=== PATIENT | female | born 1975 | race Caucasian/White ===

== ENCOUNTER 2017-07-27 23:21 | Emergency (ER) | payer OTHER ==
[~2017-07-27] VITALS: Ht 160 cm; Wt 68.0 kg
[~2017-07-27 23:21] MED LIST: ? HTN MED; ALBIPROI INH; ALBU90I INH; ALBU90OI INH; ALBU90OI6 INH; ALBU90OI61 INH; AMOX500 PO; ATOR10; ATOR10 PO; AZIT250 PO; BENZ100A PO; BUSP5 PO; CEPH500 PO; CIPR500 PO; CLAR500 PO; CLIN300 PO; CYCL10 PO; Ciprodex Otic7.5 ML RIGHTEAR; Cleocin HCl150 MG PO; ERGO400 PO; FLUO10 PO; GUAI120S1 PO; HYDACE10B PO; HYDACE5 PO; HYDCHL25 PO; HYDCHL50 PO; HYDHCL10 PO; IBUP600 PO; IBUP800 PO; Keflex500 MG PO; LANS30EC PO; LITH300C PO; MELO7.5 PO; METO50 PO; METR250 PO; METR500 PO; NAPR375ER PO; NAPR500 PO; NEOPOLHCSU LEFTEAR; NEOPOLHCSU OT; Norco 5-325 Ta1 EACH PO; OXYACE5T PO; Omeprazole20 M1; PARO10 PO; PENVK500 PO; PROACE100 PO; PROM25 PO; PROP10; PROP10 PO; PROP20 PO; Percocet 5-3251 EACH PO; RANI150 PO; RXANTBENOT LEFTEAR; RXCLIN PO; RXCODACET PO; RXHYDACE PO; RXPENVK250 PO; RXTRAM50 PO; SULTRIDS PO; Sudafed30 MG PO; TRAM50 PO; TRAZ50 PO; Ultram50 MG PO; VITB100 PO; Vibramycin100 MG PO; Zantac150 MG PO; Zithromax250 MG PO
[2017-07-27] MEDS ORDERED: Cleocin HCl150 MG PO (23:42)
[2017-08-20] MEDS ORDERED: ALBU90OI61 (12:42)
[2017-08-20] MEDS ORDERED: ACET500 (12:42)
[2017-08-20] MEDS ORDERED: ZESTRIL40 MG (12:42)
[2017-08-20] MEDS ORDERED: RANI150 (12:42)
[2017-08-20] MEDS ORDERED: PANT40 (12:43)
[2017-08-20] MEDS ORDERED: AZIT250 (12:43)
[2017-08-20] MEDS ORDERED: Ocuflox5 ML (12:43)
[2017-08-20] MEDS ORDERED: FLONASE ALLERG9.9 ML (12:43)
[2017-08-20] MEDS ORDERED: NASAL DECONGEST30 MG (12:43)
[2017-08-20] MEDS ORDERED: Cheratussin AC118 ML (12:43)
[2017-08-20] MEDS ORDERED: PRED20 (12:44)
[2017-12-29] MEDS ORDERED: LOSA50 PO (19:28)
[2017-12-29] MEDS ORDERED: Vibramycin100 MG PO (19:37)
[2018-06-11] MEDS ORDERED: CLON.1 PO (22:17)
[2018-06-11] MEDS ORDERED: Prednisone20 MG PO (23:08)
== END 2017-07-28 00:43 | disposition home or self-care (01) ==
LOC: ER 23:21
DX: H66.42 Suppurative otitis media, unspecified, left ear (principal); I10 Essential (primary) hypertension; J45.909 Unspecified asthma, uncomplicated; Z88.0 Allergy status to penicillin; Z88.1 Allergy status to other antibiotic agents; Z98.51 Tubal ligation status; Z90.49 Acquired absence of other specified parts of digestive tract; Z87.891 Personal history of nicotine dependence
CPT/HCPCS: 99283

== ENCOUNTER 2017-08-27 10:25 | Day surgery (SDC) | payer OTHER ==
[~2017-08-27] VITALS: Ht 154.9 cm; Wt 80.0 kg
[~2017-08-27 10:25] MED LIST changes: +ACET500; +ALBU90OI61; +AZIT250; +Cheratussin AC118 ML; +FLONASE ALLERG9.9 ML; +NASAL DECONGEST30 MG; +Ocuflox5 ML; +PANT40; +PRED20; +RANI150; +ZESTRIL40 MG
[2017-12-29] MEDS ORDERED: LOSA50 PO (19:28)
[2017-12-29] MEDS ORDERED: Vibramycin100 MG PO (19:37)
[2018-06-11] MEDS ORDERED: CLON.1 PO (22:17)
[2018-06-11] MEDS ORDERED: Prednisone20 MG PO (23:08)
== END 2017-08-27 13:06 | disposition home or self-care (01) ==
LOC: ORSCSDS 10:25
PROVIDERS: Internal Medicine Gastroenterology
PROC: 0DB58ZX Excision of Esophagus, Via Natural or Artificial Opening Endoscopic, Diagnostic (ICD-10-PCS; principal; 2017-08-27 12:00)
PROC: 0DB98ZX Excision of Duodenum, Via Natural or Artificial Opening Endoscopic, Diagnostic (ICD-10-PCS; principal; 2017-08-27 12:00)
PROC: 0DB68ZX Excision of Stomach, Via Natural or Artificial Opening Endoscopic, Diagnostic (ICD-10-PCS; principal; 2017-08-27 12:00)
DX: K30 Functional dyspepsia (principal); K29.00 Acute gastritis without bleeding; B96.81 Helicobacter pylori [H. pylori] as the cause of diseases classified elsewhere; K20.9 Esophagitis, unspecified; R13.19 Other dysphagia; R11.2 Nausea with vomiting, unspecified; R19.7 Diarrhea, unspecified; J45.909 Unspecified asthma, uncomplicated; I10 Essential (primary) hypertension; Z87.891 Personal history of nicotine dependence; E66.9 Obesity, unspecified; Z68.32 Body mass index [BMI] 32.0-32.9, adult; Z79.899 Other long term (current) drug therapy
CPT/HCPCS: 88305; 88312; 88342

== ENCOUNTER 2017-08-30 17:08 | Emergency (ER) | payer OTHER ==
[~2017-08-30] VITALS: Ht 154.9 cm; Wt 79.4 kg
[2017-12-29] MEDS ORDERED: LOSA50 PO (19:28)
[2017-12-29] MEDS ORDERED: Vibramycin100 MG PO (19:37)
[2018-06-11] MEDS ORDERED: CLON.1 PO (22:17)
[2018-06-11] MEDS ORDERED: Prednisone20 MG PO (23:08)
== END 2017-08-30 18:53 | disposition home or self-care (01) ==
LOC: ER 17:08
DX: R21 Rash and other nonspecific skin eruption (principal); I10 Essential (primary) hypertension; F41.9 Anxiety disorder, unspecified; E78.5 Hyperlipidemia, unspecified; F31.9 Bipolar disorder, unspecified; Z88.0 Allergy status to penicillin; Z88.8 Allergy status to other drugs, medicaments and biological substances; Z88.2 Allergy status to sulfonamides; Z88.6 Allergy status to analgesic agent; Z79.899 Other long term (current) drug therapy; Z90.49 Acquired absence of other specified parts of digestive tract; Z98.51 Tubal ligation status
CPT/HCPCS: 99282

== ENCOUNTER → 2018-03-27 | Outpatient (CLI) | payer OTHER ==
[~2018-03-27] MED LIST changes: +LOSA50 PO
[2018-03-27 17:39] LABS: Adenovirus F 40/41 Not Detected (NOT DETECT); Astrovirus Not Detected (NOT DETECT); Campylobacter Sp Not Detected (NOT DETECT); Cryptosporidium Not Detected (NOT DETECT); Cyclospora Cayetanensis Not Detected (NOT DETECT); E. Coli O157 Not Detected (NOT DETECT); Entamoeba Histolytica Not Detected (NOT DETECT); Enteroaggregative E. coli-EAEC Not Detected (NOT DETECT); Enteropathogenic E. coli-EPEC Not Detected (NOT DETECT); Enterotoxigenic E. coli-ETEC Not Detected (NOT DETECT); Giardia Lamblia Not Detected (NOT DETECT); Norovirus GI/GII Not Detected (NOT DETECT); Plesiomonas Shigelloides Not Detected (NOT DETECT); Rotavirus A Not Detected (NOT DETECT); Salmonella Sp Not Detected (NOT DETECT); Sapovirus Not Detected (NOT DETECT); Shiga Toxin-prod E. coli-STEC Not Detected (NOT DETECT); Shigella/Enteroin E. coli-EIEC Not Detected (NOT DETECT); Vibrio Cholerae Not Detected (NOT DETECT); Vibrio Sp Not Detected (NOT DETECT); Yersinia Enterocolitica Not Detected (NOT DETECT)
== END ==
LOC: LAB SRC 07:00 → LAB SHORT 07:00
PROVIDERS: Nurse Practitioner Family
DX: R19.7 Diarrhea, unspecified (principal)
CPT/HCPCS: 87507

== ENCOUNTER → 2018-12-25 | Outpatient (CLI) | payer OTHER ==
[~2018-12-25] MED LIST changes: +CLON.1 PO; +Prednisone20 MG PO
[2018-12-25 12:24] LABS: BASOPHILS ABSOLUTE AUTO 0.06 K/mm3 (0.00-0.23); BASOPHILS PERCENT AUTO 1 % (0-2); EOSINOPHILS ABSOLUTE AUTO 0.23 K/mm3 (0.00-0.68); EOSINOPHILS PERCENT AUTO 2 % (0-6); Hematocrit 42.8 % (33.0-51.0); Hemoglobin 14.4 g/dL (11.5-16.0); IMMATURE GRAN ABSOLUTE AUTO 0.02 K/mm3 (0.00-0.10); IMMATURE GRAN PERCENT AUTO 0 % (0-1); LYMPHOCYTES ABSOLUTE AUTO 3.01 K/mm3 (0.84-5.20); LYMPHOCYTES PERCENT AUTO 29 % (21-46); MONOCYTES ABSOLUTE AUTO 0.58 K/mm3 (0.16-1.47); MONOCYTES PERCENT AUTO 6 % (4-13); Mean Corpuscular HGB 28.1 pg (26.0-34.0); Mean Corpuscular HGB Conc 33.6 g/dL (31.5-36.5); Mean Corpuscular Volume 84 fL (80-100); Mean Platelet Volume 11.4 fL (9.1-12.4); NEUTROPHILS ABSOLUTE AUTO 6.47 K/mm3 (1.96-9.15); NEUTROPHILS PERCENT AUTO 62 % (41-73); Platelet Count 280 K/mm3 (150-400); RDW Standard Deviation 39.2 fL (35.1-46.3); Red Blood Cell Count 5.12 M/mm3 (3.80-5.20); White Blood Cell Count 10.37 K/mm3 (4.00-11.30)
[2018-12-25 12:36] LABS: Alanine Aminotransfer (ALT/SGP 18 U/L (12-78); Albumin, Blood 4.2 g/dL (3.4-5.0); Albumin/Globulin Ratio 1.2 (0.8-1.8); Alk Phos 61 U/L (40-126); Anion Gap 8 mmol/L (6-16); Aspartate Aminotrans (AST/SGOT 17 U/L (12-37); Bilirubin, Total 0.5 mg/dL (0.1-1.0); Blood Urea Nitrogen 19 mg/dL (8-24); Bun/Creatinine Ratio 19.4 (12.0-20.0); CO2, Blood 27 mmol/L (21-32); Calcium, Blood 9.4 mg/dL (8.5-10.1); Chloride, Blood 102 mmol/L (98-108); Creatinine, Blood 0.98 mg/dL (0.40-1.00); Globulin, Blood 3.5 g/dL (2.2-4.0); Glomerular Filtration Rate >60 (60-); Glucose, Blood 96 mg/dL (70-99); Potassium, Blood 4.1 mmol/L (3.5-5.5); Sodium, Blood 137 mmol/L (136-145); Total Protein, Blood 7.7 g/dL (6.4-8.2)
== END | disposition home or self-care (01) ==
LOC: LAB SHORT 12:20 → LAB EV 12:20
PROVIDERS: General Practice
DX: R06.09 Other forms of dyspnea (principal)
CPT/HCPCS: 80053; 85025

== ENCOUNTER 2019-04-15 05:44 | Emergency (ER) | payer OTHER ==
[~2019-04-15] VITALS: Ht 152.4 cm; Wt 68.0 kg
[2019-04-15] MEDS ORDERED: Pseudoephedrine30 MG PO (07:31)
== END 2019-04-15 07:42 | disposition home or self-care (01) ==
LOC: ER 05:44
DX: J32.9 Chronic sinusitis, unspecified (principal); F41.9 Anxiety disorder, unspecified; E78.5 Hyperlipidemia, unspecified; F31.9 Bipolar disorder, unspecified; I10 Essential (primary) hypertension; G43.909 Migraine, unspecified, not intractable, without status migrainosus; Z88.0 Allergy status to penicillin; Z88.8 Allergy status to other drugs, medicaments and biological substances; Z88.2 Allergy status to sulfonamides; Z88.1 Allergy status to other antibiotic agents; Z88.6 Allergy status to analgesic agent; Z79.899 Other long term (current) drug therapy; Z87.891 Personal history of nicotine dependence
CPT/HCPCS: 99283

== ENCOUNTER 2019-11-27 08:51 | Emergency (ER) | payer OTHER ==
[~2019-11-27] VITALS: Ht 154.9 cm; Wt 77.1 kg
[~2019-11-27 08:51] MED LIST changes: +Catapres-Tts 11 EACH; +PSEU120ER PO; +Pseudoephedrine30 MG PO
[2019-11-27] MEDS ORDERED: CLON.1 PO (09:55)
[2019-11-27] MEDS ORDERED: LOSA50 PO (09:55)
[2019-11-27 10:10] LABS: BASOPHILS ABSOLUTE AUTO 0.05 K/mm3 (0.00-0.23); BASOPHILS PERCENT AUTO 1 % (0-2); EOSINOPHILS ABSOLUTE AUTO 0.21 K/mm3 (0.00-0.68); EOSINOPHILS PERCENT AUTO 2 % (0-6); Hematocrit 42.7 % (33.0-51.0); IMMATURE GRAN ABSOLUTE AUTO 0.03 K/mm3 (0.00-0.10); IMMATURE GRAN PERCENT AUTO 0 % (0-1); LYMPHOCYTES PERCENT AUTO 22 % (21-46); MONOCYTES ABSOLUTE AUTO 0.54 K/mm3 (0.16-1.47); MONOCYTES PERCENT AUTO 6 % (4-13); Mean Corpuscular HGB 28.2 pg (26.0-34.0); Mean Corpuscular HGB Conc 32.8 g/dL (31.5-36.5); Mean Corpuscular Volume 86 fL (80-100); Mean Platelet Volume 11.2 fL (9.1-12.4); NEUTROPHILS ABSOLUTE AUTO 6.45 K/mm3 (1.96-9.15); NEUTROPHILS PERCENT AUTO 69 % (41-73); Platelet Count 272 K/mm3 (150-400); RDW Coefficient Variation 13.2 % (11.7-14.2); RDW Standard Deviation 40.9 fL (35.1-46.3); Red Blood Cell Count 4.97 M/mm3 (3.80-5.20); White Blood Cell Count 9.38 K/mm3 (4.00-11.30)
[2019-11-27 10:20] LABS: Alanine Aminotransfer (ALT/SGP 18 U/L (12-78); Albumin, Blood 3.9 g/dL (3.4-5.0); Albumin/Globulin Ratio 1.1 (0.8-1.8); Alk Phos 64 U/L (50-136); Anion Gap 6 mmol/L (6-16); Aspartate Aminotrans (AST/SGOT 21 U/L (12-37); Bilirubin, Total 0.5 mg/dL (0.1-1.0); Blood Urea Nitrogen 12 mg/dL (8-24); Bun/Creatinine Ratio 14.8 (12.0-20.0); CO2, Blood 26 mmol/L (21-32); Calcium, Blood 8.6 mg/dL (8.5-10.1); Chloride, Blood 106 mmol/L (98-108); Creatinine, Blood 0.81 mg/dL (0.40-1.00); Globulin, Blood 3.7 g/dL (2.2-4.0); Glomerular Filtration Rate >60 (60-); Glucose, Blood 101 mg/dL (70-99); Sodium, Blood 138 mmol/L (136-145); Total Protein, Blood 7.6 g/dL (6.4-8.2); Troponin I <0.015 ng/mL (0.000-0.040)
[2019-11-27] MEDS ORDERED: HYDR1TAB94 PO (11:37)
== END 2019-11-27 12:11 | disposition home or self-care (01) ==
LOC: ER 08:51
PROVIDERS: Physician Assistant
DX: R07.89 Other chest pain (principal); I10 Essential (primary) hypertension; E78.5 Hyperlipidemia, unspecified; G43.909 Migraine, unspecified, not intractable, without status migrainosus; F31.9 Bipolar disorder, unspecified; F41.9 Anxiety disorder, unspecified; J45.909 Unspecified asthma, uncomplicated; Z88.0 Allergy status to penicillin; Z88.8 Allergy status to other drugs, medicaments and biological substances; Z88.2 Allergy status to sulfonamides; Z88.1 Allergy status to other antibiotic agents; Z88.6 Allergy status to analgesic agent; Z79.899 Other long term (current) drug therapy; Z87.891 Personal history of nicotine dependence
CPT/HCPCS: 36415; 71045; 80053; 84484; 85025; 96374; 96375; 99285-25; J1885; J2270

== ENCOUNTER → 2020-06-01 | Outpatient (CLI) | payer OTHER ==
[~2020-06-01] MED LIST changes: +HYDR1TAB94 PO
== END | disposition home or self-care (01) ==
LOC: LAB SRC 13:50 → LAB SHORT 13:50
DX: R35.0 Frequency of micturition (principal); M54.40 Lumbago with sciatica, unspecified side
CPT/HCPCS: 87086

== ENCOUNTER 2021-02-02 20:51 | Emergency (ER) | payer OTHER ==
[~2021-02-02] VITALS: Ht 154.9 cm; Wt 79.8 kg
[2021-02-02] MEDS ORDERED: Triamcinolone A15 GM TOP (22:11)
== END 2021-02-02 22:20 | disposition home or self-care (01) ==
LOC: ER 20:51
DX: L40.9 Psoriasis, unspecified (principal); I10 Essential (primary) hypertension; Z79.899 Other long term (current) drug therapy
CPT/HCPCS: 99282

== ENCOUNTER 2021-02-20 23:37 | Emergency (ER) | payer OTHER ==
[~2021-02-20] VITALS: Ht 154.9 cm; Wt 77.1 kg
[~2021-02-20 23:37] MED LIST changes: +Triamcinolone A15 GM TOP
== END 2021-02-21 04:40 | disposition left against medical advice (07) ==
LOC: ER 23:37
DX: Z53.21 Procedure and treatment not carried out due to patient leaving prior to being seen by health care provider (principal)

== ENCOUNTER 2021-02-26 02:05 | Emergency (ER) | payer OTHER | END 2021-02-26 04:21 | disposition left against medical advice (07) | LOC: ER 02:05 | DX: Z53.21 Procedure and treatment not carried out due to patient leaving prior to being seen by health care provider (principal) ==

== ENCOUNTER 2021-09-06 02:52 | Emergency (ER) | payer OTHER ==
[~2021-09-06 02:52] MED LIST changes: +FAMO20 PO
== END 2021-09-06 04:47 | disposition home or self-care (01) ==
LOC: ER 02:52
DX: R20.0 Anesthesia of skin (principal); R51.9 Headache, unspecified; E78.5 Hyperlipidemia, unspecified; I10 Essential (primary) hypertension; G43.909 Migraine, unspecified, not intractable, without status migrainosus; J45.909 Unspecified asthma, uncomplicated; Z87.891 Personal history of nicotine dependence; Z88.8 Allergy status to other drugs, medicaments and biological substances; Z88.0 Allergy status to penicillin; Z88.2 Allergy status to sulfonamides; Z88.1 Allergy status to other antibiotic agents; Z79.899 Other long term (current) drug therapy
CPT/HCPCS: 70450

== ENCOUNTER → 2021-10-05 | Outpatient (CLI) | payer OTHER | END | disposition home or self-care (01) | LOC: LAB SHORT 14:30 → LAB 14:30 | DX: L02.413 Cutaneous abscess of right upper limb (principal); L03.119 Cellulitis of unspecified part of limb | CPT/HCPCS: 87015; 87116; 87206 ==

== ENCOUNTER → 2022-03-06 | Outpatient (CLI) | payer OTHER ==
[2022-03-07 15:10] LABS: HPV 16 Negative (Negative); HPV 18 Negative (Negative); HPV OTHER HR TYPES Negative (Negative)
== END | disposition home or self-care (01) ==
LOC: LAB SHORT 16:30 → LAB 16:30
PROVIDERS: Family Medicine
DX: Z01.419 Encounter for gynecological examination (general) (routine) without abnormal findings (principal)
CPT/HCPCS: 87624; G0123

== ENCOUNTER 2022-03-07 09:28 | Emergency (ER) | payer OTHER ==
[~2022-03-07] VITALS: Ht 154.9 cm; Wt 79.8 kg
[2022-03-07 10:36] LABS: Albumin, Blood 3.4 g/dL (3.4-5.0); Albumin/Globulin Ratio 0.9 (0.8-1.8); Bilirubin, Total 0.2 mg/dL (0.1-1.0); Bun/Creatinine Ratio 27.3 (12.0-20.0); Calcium, Blood 8.3 mg/dL (8.5-10.1); Creatinine, Blood 0.59 mg/dL (0.40-1.00); Globulin, Blood 3.6 g/dL (2.2-4.0); Potassium, Blood 3.9 mmol/L (3.5-5.5)
[2022-03-07 10:38] LABS: BASOPHILS ABSOLUTE AUTO 0.07 K/mm3 (0.00-0.23); BASOPHILS PERCENT AUTO 1 % (0-2); EOSINOPHILS ABSOLUTE AUTO 0.28 K/mm3 (0.00-0.68); EOSINOPHILS PERCENT AUTO 3 % (0-6); Hematocrit 46.4 % (33.0-51.0); Hemoglobin 15.1 g/dL (11.5-16.0); IMMATURE GRAN ABSOLUTE AUTO 0.04 K/mm3 (0.00-0.10); IMMATURE GRAN PERCENT AUTO 0 % (0-1); LYMPHOCYTES ABSOLUTE AUTO 2.54 K/mm3 (0.84-5.20); LYMPHOCYTES PERCENT AUTO 26 % (21-46); MONOCYTES PERCENT AUTO 4 % (4-13); Mean Corpuscular HGB 27.7 pg (26.0-34.0); Mean Corpuscular HGB Conc 32.5 g/dL (31.5-36.5); Mean Corpuscular Volume 85 fL (80-100); Mean Platelet Volume 11.6 fL (9.1-12.4); NEUTROPHILS ABSOLUTE AUTO 6.62 K/mm3 (1.96-9.15); NEUTROPHILS PERCENT AUTO 67 % (41-73); Platelet Count 258 K/mm3 (150-400); RDW Coefficient Variation 12.6 % (11.7-14.2); RDW Standard Deviation 38.9 fL (35.1-46.3); Red Blood Cell Count 5.46 M/mm3 (3.80-5.20); White Blood Cell Count 9.95 K/mm3 (4.00-11.30)
== END 2022-03-07 13:30 | disposition home or self-care (01) ==
LOC: ER 09:28
PROVIDERS: Student in an Organized Health Care Education/Training Program
DX: R07.89 Other chest pain (principal); E78.5 Hyperlipidemia, unspecified; I10 Essential (primary) hypertension; J45.909 Unspecified asthma, uncomplicated; Z79.899 Other long term (current) drug therapy; Z88.6 Allergy status to analgesic agent; Z88.1 Allergy status to other antibiotic agents; Z88.0 Allergy status to penicillin; Z88.2 Allergy status to sulfonamides; Z88.8 Allergy status to other drugs, medicaments and biological substances
CPT/HCPCS: 36415; 71045; 80053; 84484; 85025; 93005; 93010; 99284-25; A9270; J1885

== ENCOUNTER 2022-06-13 06:23 | Emergency (ER) | payer OTHER ==
[~2022-06-13] VITALS: Ht 167.6 cm; Wt 81.7 kg
[2022-06-13 07:24] LABS: BASOPHILS ABSOLUTE AUTO 0.03 K/mm3 (0.00-0.23); BASOPHILS PERCENT AUTO 0 % (0-2); EOSINOPHILS ABSOLUTE AUTO 0.07 K/mm3 (0.00-0.68); EOSINOPHILS PERCENT AUTO 1 % (0-6); Hematocrit 40.6 % (33.0-51.0); Hemoglobin 13.7 g/dL (11.5-16.0); IMMATURE GRAN ABSOLUTE AUTO 0.01 K/mm3 (0.00-0.10); IMMATURE GRAN PERCENT AUTO 0 % (0-1); LYMPHOCYTES ABSOLUTE AUTO 0.36 K/mm3 (0.84-5.20); LYMPHOCYTES PERCENT AUTO 5 % (21-46); MONOCYTES ABSOLUTE AUTO 0.47 K/mm3 (0.16-1.47); MONOCYTES PERCENT AUTO 7 % (4-13); Mean Corpuscular HGB Conc 33.7 g/dL (31.5-36.5); Mean Corpuscular Volume 83 fL (80-100); Mean Platelet Volume 11.5 fL (9.1-12.4); NEUTROPHILS ABSOLUTE AUTO 6.05 K/mm3 (1.96-9.15); NEUTROPHILS PERCENT AUTO 87 % (41-73); Platelet Count 188 K/mm3 (150-400); RDW Coefficient Variation 12.9 % (11.7-14.2); RDW Standard Deviation 38.9 fL (35.1-46.3); Red Blood Cell Count 4.89 M/mm3 (3.80-5.20); White Blood Cell Count 6.99 K/mm3 (4.00-11.30)
[2022-06-13 07:43] LABS: Albumin, Blood 3.5 g/dL (3.4-5.0); Bilirubin, Total 0.3 mg/dL (0.1-1.0); Bun/Creatinine Ratio 17.4 (12.0-20.0); Calcium, Blood 8.7 mg/dL (8.5-10.1); Creatinine, Blood 0.86 mg/dL (0.40-1.00); Globulin, Blood 3.5 g/dL (2.2-4.0); Potassium, Blood 4.1 mmol/L (3.5-5.5)
[2022-06-13 08:42] LABS: Influenza A, PCR NEGATIVE (NEGATIVE); Influenza B, PCR NEGATIVE (NEGATIVE); Resp Syncytial Virus, PCR NEGATIVE (NEGATIVE); SARS-Cov-2 (COVID-19) PCR, MMC NEGATIVE (NEGATIVE)
== END 2022-06-13 09:35 | disposition home or self-care (01) ==
LOC: ER 06:23
PROVIDERS: Emergency Medicine
DX: R51.9 Headache, unspecified (principal); I10 Essential (primary) hypertension; Z88.0 Allergy status to penicillin; Z88.2 Allergy status to sulfonamides; Z88.8 Allergy status to other drugs, medicaments and biological substances; Z79.899 Other long term (current) drug therapy; Z20.822 Contact with and (suspected) exposure to COVID-19
CPT/HCPCS: 0241U; 36415; 70450; 71045; 80053; 84703; 85025; J1200; J2765; J7030

== ENCOUNTER 2023-07-20 17:57 | Emergency (ER) | payer OTHER ==
[~2023-07-20] VITALS: Ht 154.9 cm; Wt 81.7 kg
[2023-07-20 18:02] VITALS: BP 186/113
== END 2023-07-20 18:24 | disposition home or self-care (01) ==
LOC: ER 17:57
DX: S50.812A Abrasion of left forearm, initial encounter (principal); M54.2 Cervicalgia; V43.52XA Car driver injured in collision with other type car in traffic accident, initial encounter; Z88.0 Allergy status to penicillin; Z88.8 Allergy status to other drugs, medicaments and biological substances; Z88.2 Allergy status to sulfonamides; Z88.1 Allergy status to other antibiotic agents; Z88.6 Allergy status to analgesic agent; Z79.899 Other long term (current) drug therapy; E78.5 Hyperlipidemia, unspecified; I10 Essential (primary) hypertension; G43.909 Migraine, unspecified, not intractable, without status migrainosus; J45.909 Unspecified asthma, uncomplicated
CPT/HCPCS: 99283

== ENCOUNTER 2024-08-21 21:20 | Emergency (ER) | payer OTHER ==
[~2024-08-21] VITALS: Ht 154.9 cm; Wt 83.9 kg
[~2024-08-21 21:20] MED LIST changes: +AMLO10 PO; +BUDESONIDE-FO10.2 G2 INH; +Benicar40 MG PO; +CATAPRES0.1 MG PO; +DOCU100 PO; +OMEP20ER PO; +ONDA4 PO; +VITAMIN D350 MC3; +VITAMIN D350 MC3 PO
[2024-08-21 21:58] LABS: BASOPHILS ABSOLUTE AUTO 0.06 K/mm3 (0.00-0.23); BASOPHILS PERCENT AUTO 1 % (0-2); EOSINOPHILS ABSOLUTE AUTO 0.24 K/mm3 (0.00-0.68); EOSINOPHILS PERCENT AUTO 2 % (0-6); Hematocrit 44.4 % (33.0-51.0); Hemoglobin 14.9 g/dL (11.5-16.0); IMMATURE GRAN ABSOLUTE AUTO 0.03 K/mm3 (0.00-0.10); IMMATURE GRAN PERCENT AUTO 0 % (0-1); LYMPHOCYTES PERCENT AUTO 24 % (21-46); MONOCYTES ABSOLUTE AUTO 0.61 K/mm3 (0.16-1.47); MONOCYTES PERCENT AUTO 6 % (4-13); Mean Corpuscular HGB 28.1 pg (26.0-34.0); Mean Corpuscular HGB Conc 33.6 g/dL (31.5-36.5); Mean Corpuscular Volume 84 fL (80-100); Mean Platelet Volume 11.8 fL (9.1-12.4); NEUTROPHILS ABSOLUTE AUTO 6.86 K/mm3 (1.96-9.15); NEUTROPHILS PERCENT AUTO 67 % (41-73); Platelet Count 303 K/mm3 (150-400); RDW Coefficient Variation 13.1 % (11.7-14.2); RDW Standard Deviation 40.1 fL (35.1-46.3); Red Blood Cell Count 5.31 M/mm3 (3.80-5.20)
[2024-08-21 22:11] LABS: Albumin, Blood 4.2 g/dL (3.4-5.0); Albumin/Globulin Ratio 1.1 (0.8-1.8); Bilirubin, Total 0.4 mg/dL (0.1-1.0); Bun/Creatinine Ratio 20.8 (12.0-20.0); Calcium, Blood 9.6 mg/dL (8.5-10.1); Creatinine, Blood 0.72 mg/dL (0.40-1.00); Globulin, Blood 3.8 g/dL (2.2-4.0); Potassium, Blood 4.1 mmol/L (3.5-5.5)
[2024-08-21] MEDS ORDERED: Furosemide 10 MG / ML 2ML Vial IV ONE (23:15)
[2024-08-21] MEDS ORDERED: Hydrochlorothia25 MG PO (23:23)
[2024-08-21 23:30] VITALS: BP 154/101
== END 2024-08-21 23:47 | disposition home or self-care (01) ==
LOC: ER 21:20
PROVIDERS: Physician Assistant
DX: R07.89 Other chest pain (principal); R60.0 Localized edema; I10 Essential (primary) hypertension
CPT/HCPCS: 71046; 80053; 83880; 84484; 85025; 93005; 93010; 96374; 99284-25; J1940

== ENCOUNTER 2024-10-19 05:27 | Day surgery (SDC) | payer OTHER ==
[~2024-10-19 05:27] MED LIST changes: -AMLO10 PO; +AMLO5 PO; +Hydrochlorothia25 MG PO
[2024-10-19] MEDS ORDERED: Lidocaine HCl/Pf 1% 5 ML VIAL ONE (07:32)
[2024-10-19] MEDS ORDERED: Lidocaine 2% 5 ML SDV ONE (07:33)
[2024-10-19] MEDS ORDERED: Lactated Ringer's 1,000 ML IV ONE (07:41)
[2024-10-19] MEDS ORDERED: propofoL 50 ML IV ONE (07:41)
== END 2024-10-19 11:40 | disposition home or self-care (01) ==
LOC: ORSCSDS 05:27
DX: K44.9 Diaphragmatic hernia without obstruction or gangrene (principal); K21.9 Gastro-esophageal reflux disease without esophagitis; Z53.9 Procedure and treatment not carried out, unspecified reason
CPT/HCPCS: J2003; J2704; J7120

== ENCOUNTER 2024-10-24 03:16 | Inpatient (IN) | payer OTHER ==
[2024-10-24] VITALS (20 sets, daily range): BP systolic 116–149; BP diastolic 84–107
[~2024-10-24] VITALS: Ht 154.9 cm; Wt 88.4 kg
[2024-10-24] MEDS ORDERED: Mag Hydrox/AL Hydrox/Simeth 30 ML UDC PO ONE (03:25)
[2024-10-24] MEDS ORDERED: Lidocaine 2% Viscous Soln 15 ML UDC PO ONE (03:25)
[2024-10-24 03:45] LABS: BASOPHILS ABSOLUTE AUTO 0.07 K/mm3 (0.00-0.23); BASOPHILS PERCENT AUTO 1 % (0-2); EOSINOPHILS ABSOLUTE AUTO 0.24 K/mm3 (0.00-0.68); EOSINOPHILS PERCENT AUTO 2 % (0-6); Hematocrit 40.8 % (33.0-51.0); Hemoglobin 13.5 g/dL (11.5-16.0); IMMATURE GRAN ABSOLUTE AUTO 0.03 K/mm3 (0.00-0.10); IMMATURE GRAN PERCENT AUTO 0 % (0-1); LYMPHOCYTES ABSOLUTE AUTO 2.82 K/mm3 (0.84-5.20); LYMPHOCYTES PERCENT AUTO 26 % (21-46); MONOCYTES PERCENT AUTO 6 % (4-13); Mean Corpuscular HGB 27.5 pg (26.0-34.0); Mean Corpuscular HGB Conc 33.1 g/dL (31.5-36.5); Mean Corpuscular Volume 83 fL (80-100); Mean Platelet Volume 10.9 fL (9.1-12.4); NEUTROPHILS ABSOLUTE AUTO 7.18 K/mm3 (1.96-9.15); NEUTROPHILS PERCENT AUTO 66 % (41-73); Platelet Count 294 K/mm3 (150-400); RDW Coefficient Variation 12.9 % (11.7-14.2); Red Blood Cell Count 4.91 M/mm3 (3.80-5.20); White Blood Cell Count 10.94 K/mm3 (4.00-11.30)
[2024-10-24 04:05] LABS: Albumin, Blood 3.4 g/dL (3.4-5.0); Bilirubin, Total 0.1 mg/dL (0.1-1.0); Bun/Creatinine Ratio 15.7 (12.0-20.0); Calcium, Blood 8.3 mg/dL (8.5-10.1); Creatinine, Blood 0.7 mg/dL (0.40-1.00); Globulin, Blood 3.3 g/dL (2.2-4.0); Potassium, Blood 3.6 mmol/L (3.5-5.5); Total Protein, Blood 6.7 g/dL (6.4-8.2)
[2024-10-24] MEDS ORDERED: Metoprolol Tartrate 1 MG/ML 5 ML VIAL IV PRN (05:00)
[2024-10-24] MEDS ORDERED: Nitroglycerin 1 INCH/GM PKT TOP ONE (05:05)
[2024-10-24] MEDS ORDERED: HydrALAZINE HCl 20 MG / ML 1ML Vial IV ONE (05:35)
[2024-10-24] MEDS ORDERED: Aspirin 81 MG Chew PO SCH (06:00)
[2024-10-24] MEDS ORDERED: Nitroglycerin 0.4 MG SUBL SL PRN (06:00)
[2024-10-24] MEDS ORDERED: Atorvastatin 40 MG Tab PO SCH (06:00)
[2024-10-24] MEDS ORDERED: Ondansetron HCl 2 MG / ML 2ML Vial IV PRN (06:00)
[2024-10-24 06:01] LABS: Anti-Xa UFH, PHA Monitoring <0.10 IU/mL; International Normalized Ratio 0.91; Prothrombin Time Results 9.8 Sec (9.7-11.5)
[2024-10-24] MEDS ORDERED: FentaNYL Citrate 50 MCG/ML 2 ML Injection IV PRN (06:05)
[2024-10-24] MEDS ORDERED: HydrALAZINE HCl 20 MG / ML 1ML Vial IV PRN (06:05)
[2024-10-24] MEDS ORDERED: CARV25 PO (06:52)
[2024-10-24] MEDS ORDERED: Dose Adjust by Pharmacy XX STA (06:56)
[2024-10-24] MEDS ORDERED: Heparin Sodium 5000 Units/ML 1ML MDV IV ONE (07:00)
[2024-10-24] MEDS ORDERED: Heparin Sodium,Porcine/0.5 NS 500 ML IV SCH (07:00)
[2024-10-24] MEDS ORDERED: Morphine Sulfate 10 MG/ML 1MLSYR IV PRN (07:55)
[2024-10-24] MEDS ORDERED: Nitroglycerin 2 MG/20 ML BTL ONE (09:22)
[2024-10-24] MEDS ORDERED: Verapamil HCL 2.5 MG/ML 2ML Injection ONE (09:22)
[2024-10-24] MEDS ORDERED: Heparin Sodium 1000 Units/ML 10ML MDV ONE ×2 (09:22→09:57)
[2024-10-24] MEDS ORDERED: NS 1,000 ML IV ONE ×2 (09:22→09:24)
[2024-10-24] MEDS ORDERED: NS 250 ML IV ONE (09:22)
[2024-10-24] MEDS ORDERED: FentaNYL Citrate 50 MCG/ML 2 ML Injection ONE ×4 (09:24→11:58)
[2024-10-24] MEDS ORDERED: Midazolam HCl 1MG / ML 2ML Vial ONE ×2 (09:24→10:51)
[2024-10-24] MEDS ORDERED: Phenylephrine HCl 100 MCG/ML-NS 10MLSYR (1MG/10ML) ONE (10:24)
[2024-10-24] MEDS ORDERED: Clopidogrel Bisulfate 300 MG TABLET ONE (11:05)
[2024-10-24] MEDS ORDERED: NS 1,000 ML IV SCH (11:25)
[2024-10-24] MEDS ORDERED: Metoprolol Succinate 50 MG TABCR PO SCH (12:00)
[2024-10-24] MEDS ORDERED: FentaNYL Citrate 50 MCG/ML 2 ML Injection IV ONE (12:00)
--- NOTE | 2024-10-24 12:43 | NUR ---
UPDATE: PT ARRIVED BACK TO HER ROOM FROM DIRECTOR MARKET INTELLIGENCE AT APPROX. PT ARRIVES WITH TR BAND IN PLACE. PT NOT REPORTING ANY CP ON ARRIVAL. PT BEGAN TO REPORT 7/10 CP APPROX 10 MINUTES AFTER ARRIVAL. REPEAT EKG OBTAINED. VICE PRESIDENT OF ACADEMIC AFFAIRS AT BEDSIDE TO SEE PT. VERBAL ORDER FOR 50MCG OF FENTANYL ANY SL NITRO. PT STATING THAT SHE DOES NOT FEEL GOOD AND IT DESCRIBING HER CP AT CHRUSHING. PT ALSO COMPLAINING OF FEELING HOT AND SWEATY. PT MEDICATED WITH FENTANLY AND NITRO X2. PT REPORTING 0/10 CP AT THIS TIME. BLOOD PRESSURE 124/93 (102). PT GIVEN PO METOPROLOL TO GET SBP BELOW 120 PER PROVIDER ORDERS.
[2024-10-24] MEDS ORDERED: Isosorbide Mononitrate 60 MG TABCR PO SCH (13:05)
[2024-10-24] MEDS ORDERED: Lisinopril 10 MG Tab PO SCH (13:05)
[2024-10-24] MEDS ORDERED: AmLODIPine Besylate 5 MG Tab PO SCH (13:05)
[2024-10-24] MEDS ORDERED: Acetaminophen 325 MG TABLET PO PRN (15:45)
[2024-10-24] MEDS ORDERED: Pantoprazole Sodium 20 MG Tab PO SCH (16:00)
--- NOTE | 2024-10-24 16:08 | NUR ---
TR BAND UPDATE: THIS RN ADDED 2CC OR AIR TO TR BAND AROUND 1300 DUE TO BLEEDING (13CC OF AIR TOTAL). NO NEW SIGNS OF BLEEDING OCCURED. AT 1500 2CC OF AIR WAS REMOVED. AT 1545 THERE WERE NO NEW SIGNS OF BLEEDING, BRUSING OR HEMATOMA AND 2 MORE CC OF AIR WERE REMOVED. THIS RN CHECKED TR BAND AT 1600 AND FOUND SOME NEW BLEEDING AROUND TR BAND. 2CC OF AIR WAS ADDED TO TR BAND (TOTAL OF 11CC OF AIR). CAP REFIL GOOD. BIOX ON HAND WITH GOOD PLEATH. PT DENIES ANY CP, PRESSURE, TIGHTNESS OR SOB AT THIS TIME. VSS. BACK SHOE WORKER AWARE. WILL CONTINUE TO CARE FOR PT TOLL END OF SHIFT.
--- NOTE | 2024-10-24 19:16 | NUR ---
SHIFT SUMMARY: READ PREVIOUS NOTES REGARDING POST ANGIO EVENTS. SINCE LAST NOTE 4CC OF AIR HAS BEEN TAKEN OUT OF TR BAND. THERE ARE NO NEW SIGNS OF BLEEDING, HEMATOMA OR BRUISING. PT HAS BEEN SLEEPING MOST OF THE EVENING AND WOKE UP TO EAT DINNER. NO OTHER SIGNIFICANT EVENTS HAPPENED. REPORT TO LEXI REYES TO ASSUME CARE OF PT.
--- NOTE | 2024-10-24 19:48 | NUR ---
Care Assumed now for patient. Report received from Patsy REYES. Patient is able to particpate in bedside report. C/O of heartburn. TRB remains on. Blood pressures WNL. Continue Care
[2024-10-25] VITALS (7 sets, daily range): BP systolic 88–111; BP diastolic 52–77
[2024-10-25 04:04] LABS: BASOPHILS ABSOLUTE AUTO 0.05 K/mm3 (0.00-0.23); BASOPHILS PERCENT AUTO 0 % (0-2); EOSINOPHILS ABSOLUTE AUTO 0.14 K/mm3 (0.00-0.68); EOSINOPHILS PERCENT AUTO 1 % (0-6); Hematocrit 40.4 % (33.0-51.0); Hemoglobin 12.9 g/dL (11.5-16.0); IMMATURE GRAN ABSOLUTE AUTO 0.07 K/mm3 (0.00-0.10); IMMATURE GRAN PERCENT AUTO 1 % (0-1); LYMPHOCYTES ABSOLUTE AUTO 1.95 K/mm3 (0.84-5.20); LYMPHOCYTES PERCENT AUTO 13 % (21-46); MONOCYTES ABSOLUTE AUTO 1.02 K/mm3 (0.16-1.47); MONOCYTES PERCENT AUTO 7 % (4-13); Mean Corpuscular HGB 27.2 pg (26.0-34.0); Mean Corpuscular HGB Conc 31.9 g/dL (31.5-36.5); Mean Corpuscular Volume 85 fL (80-100); Mean Platelet Volume 11.3 fL (9.1-12.4); NEUTROPHILS ABSOLUTE AUTO 11.51 K/mm3 (1.96-9.15); NEUTROPHILS PERCENT AUTO 78 % (41-73); Platelet Count 279 K/mm3 (150-400); RDW Coefficient Variation 13.1 % (11.7-14.2); RDW Standard Deviation 40.9 fL (35.1-46.3); Red Blood Cell Count 4.75 M/mm3 (3.80-5.20); White Blood Cell Count 14.74 K/mm3 (4.00-11.30)
[2024-10-25 04:24] LABS: Albumin, Blood 3.1 g/dL (3.4-5.0); Albumin/Globulin Ratio 1.1 (0.8-1.8); Bilirubin, Total 0.5 mg/dL (0.1-1.0); Bun/Creatinine Ratio 19.9 (12.0-20.0); Calcium, Blood 8.3 mg/dL (8.5-10.1); Creatinine, Blood 0.6 mg/dL (0.40-1.00); Globulin, Blood 2.9 g/dL (2.2-4.0); Potassium, Blood 4.2 mmol/L (3.5-5.5)
--- NOTE | 2024-10-25 05:10 | NUR ---
PATIENT SLEPT ENTIRE SHIFT. AROUSABLE FOR VSS AND TRB CHECKS. TRB WAS REMOVED THIS MORNING. NO BLEEDING. RIGHT WRIST IS SOFT. ARM BOARD REPLACED TO REMIND PATIENT TO NOT USE WRIST. PATIENT ASKING TO TAKE SHOWER THEN FALLS RIGHT BACK ASLEEP. MAIN COMPLAINT IS A HEADACHE WHENEVER SHE WAKES UP. ASKED PATIENT HOW HER HEADACHE WAS THIS MORNING AND SHE STATES "I THINK IT IS COMING BACK I NEED TO TAKE A SHOWER." PATIENT THEN FELL BACK ASLEEP. CONTINUE CARE
[2024-10-25] MEDS ORDERED: Isosorbide Mononitrate 60 MG TABCR PO SCH (09:00)
[2024-10-25] MEDS ORDERED: Lisinopril 10 MG Tab PO SCH (09:00)
[2024-10-25] MEDS ORDERED: AmLODIPine Besylate 5 MG Tab PO SCH (09:00)
[2024-10-25] MEDS ORDERED: Clopidogrel Bisulfate 75 MG Tab PO SCH (09:00)
[2024-10-25] MEDS ORDERED: Calcium Carbonate 500 MG Tab Chew PO PRN (11:45)
[2024-10-25 16:47] LABS: Influenza A, PCR NEGATIVE (NEGATIVE); Influenza B, PCR NEGATIVE (NEGATIVE); Resp Syncytial Virus, PCR NEGATIVE (NEGATIVE); SARS-Cov-2 (COVID-19) PCR, MMC NEGATIVE (NEGATIVE)
--- NOTE | 2024-10-25 17:33 | NUR ---
SHIFT SUMMARY: PT A&OX4. FOLLOWS COMMANDS AND MAKES NEEDS KNOWN TO STAFF. PT HAS BEEN VERY DROUSY TODAY AND HAS HAD A HARD TIME STAYING AWAKE. PT REPORTS HAVING A HEADACHE FOR MOST OF THE DAY. PT BECAME HYPOTENSIVE AND FEBRILE THIS AFTERNOON THAT HAS NOT RESOLVED WITH TYLENOL. PT REPORTING FEELING LIGHTHEADED AND WEAK. PT HAS BEEN CONPLAINING OF HEART BURN AND CP WHICH PROVIDER SAID CP IS NORMAL UNDER HER CIRCUMSTANCES. PLAN WAS FOR PT TO DC TODAY. THIS RN EXPRESSED CONCERN FOR PT DISCHARGING. PROVIDER CAME TO BEDSIDE TO REEVALUATE PT AND AGREED THAT PT SHOULD NOT GO HOME TODAY. PT AGREEABLE WITH PLAN AND STATES THAT SHE DOES NOT FEEL SAFE GOING HOME WITH HOW SHE IS FEELING. PT CONTINUES TO REST IN HER BED. THIS RN ENCOURAGED PT TO PUSH PO FLUIDS. NO OTHER SIGNIFICANT EVENTS HAPPENED DURING THIS SHIFT. WILL CONTINUE TO CARE FOR PT TILL END OF SHIFT.
--- NOTE | 2024-10-25 19:17 | NUR ---
CARE ASSUMED NOW FOR THIS PATIENT. REPORT RECEIVED FROM LE REYES PATIENT IS ABLE TO PARTICIPATE IN BEDSIDE REPORT. CONTINUE CARE
[2024-10-26 00:31] VITALS: BP 99/56
[2024-10-26 03:34] VITALS: BP 122/72
[2024-10-26 03:44] LABS: BASOPHILS ABSOLUTE AUTO 0.04 K/mm3 (0.00-0.23); BASOPHILS PERCENT AUTO 0 % (0-2); EOSINOPHILS ABSOLUTE AUTO 0.32 K/mm3 (0.00-0.68); EOSINOPHILS PERCENT AUTO 3 % (0-6); Hematocrit 36.7 % (33.0-51.0); Hemoglobin 12.1 g/dL (11.5-16.0); IMMATURE GRAN PERCENT AUTO 1 % (0-1); LYMPHOCYTES ABSOLUTE AUTO 1.83 K/mm3 (0.84-5.20); LYMPHOCYTES PERCENT AUTO 16 % (21-46); MONOCYTES ABSOLUTE AUTO 1.11 K/mm3 (0.16-1.47); MONOCYTES PERCENT AUTO 10 % (4-13); Mean Corpuscular HGB 27.8 pg (26.0-34.0); Mean Corpuscular Volume 84 fL (80-100); Mean Platelet Volume 11.5 fL (9.1-12.4); NEUTROPHILS ABSOLUTE AUTO 8.21 K/mm3 (1.96-9.15); NEUTROPHILS PERCENT AUTO 71 % (41-73); Platelet Count 253 K/mm3 (150-400); RDW Coefficient Variation 13.1 % (11.7-14.2); Red Blood Cell Count 4.35 M/mm3 (3.80-5.20); White Blood Cell Count 11.61 K/mm3 (4.00-11.30)
[2024-10-26 04:10] LABS: Albumin, Blood 2.8 g/dL (3.4-5.0); Albumin/Globulin Ratio 0.9 (0.8-1.8); Bilirubin, Total 0.3 mg/dL (0.1-1.0); Bun/Creatinine Ratio 18.6 (12.0-20.0); Calcium, Blood 8.1 mg/dL (8.5-10.1); Creatinine, Blood 0.59 mg/dL (0.40-1.00); Globulin, Blood 3.1 g/dL (2.2-4.0); Potassium, Blood 3.8 mmol/L (3.5-5.5); Total Protein, Blood 5.9 g/dL (6.4-8.2)
--- NOTE | 2024-10-26 04:54 | NUR ---
PATIENT'S TEMP IN THE LOW 99-100 TYMPANIC TONIGHT. APPEARED TO HAVE SLEPT WELL. BLOOD PRESSURES STABLE. PATIENT STILL COMPLAINS OF CHEST PRESSURE. MEDICATED TIMES ONE WITH MORPHINE. PATIENT STATES SHE IS ANXIOUS TO GO HOME AND SLEEP IN HER OWN BED. OTHERWISE STABLE. CONTINUE CARE.
[2024-10-26 07:16] VITALS: BP 132/87
[2024-10-26 11:10] VITALS: BP 114/71
[2024-10-26] MEDS ORDERED: Doxycycline Hyclate 100 MG TAB PO SCH (12:00)
[2024-10-26] MEDS ORDERED: ASPI81CH PO (14:55)
[2024-10-26] MEDS ORDERED: LIPITOR80 MG PO (14:55)
[2024-10-26] MEDS ORDERED: ISOSORBIDE MONO60 MG PO (14:56)
[2024-10-26] MEDS ORDERED: CLOP75 PO (14:56)
[2024-10-26] MEDS ORDERED: NITR.4SL SL (14:56)
[2024-10-26] MEDS ORDERED: LISI10 PO (14:56)
[2024-10-26] MEDS ORDERED: PANT40 PO (14:57)
[2024-10-26 15:37] LABS: Source, Urine Clean Catch
[2024-10-26] MEDS ORDERED: METO50ER PO (15:39)
[2024-10-26 15:58] LABS: Appearance, Urine Hazy (Clear); Bilirubin, Urine Neg (Neg); Blood, Urine Neg (Neg); Color, Urine Yellow (P-Yellow); Glucose Qualitative, Urine Neg (Neg); Ketones, Urine Neg (Neg); Leukocyte Esterase, Urine 3+ (Neg); Nitrite, Urine Neg (Neg); Protein, Urine 1+ (Neg); Specific Gravity, Urine 1.015 (1.003-1.022); Urobilinogen, Urine NORM (Normal)
[2024-10-26 16:27] VITALS: BP 110/75
[2024-10-26 16:32] LABS: Amorphous Light (0-Heavy); Bacteria Many /hpf; Mucus Light (0-Heavy); Red Blood Cells, Urine 0-2 /hpf (0-2); Squamous Epithelial Cells Many /hpf (Few)
[2024-10-26] MEDS ORDERED: DOXY100 PO (16:45)
--- NOTE | 2024-10-26 17:09 | NUR ---
SHIFT SUMMARY: PT A&OX4. FOLLOWS COMMANDS AND MAKES NEEDS KNOWN TO STAFF. PT REPORTED NOT FEELING GOOD THIS AM AND WAS AGREEABLE TO STAYING ANOTHER NIGHT. THROUGHOUT THE DAY PT REPORTED THAT SHE WAS FEELING BETTER AND THAT SHE WANTS TO GO HOME. PT WAS ABLE TO GET UP, SHOWER AND WALK AROUND WITHOUT ANY COMPLAINTS. PT REPORTS STILL FEELING TIRED BUT DENIES ANY OTHER COMPLAINTS. PT WAS DISCHARGED TO HOME AT 1452. THIS RN WENT OVER MEDICATIONS AND DISCHARGE INFORMATION WITH PT AND ANSWERED ANY QUESTIONS OR CONCERNS. BOTH IV'S WERE TAKEN OUT WITH CATHETERS INTACT. PT WAS ABLE TO DRESS HERSELF. BELONGINGS WERE COLLECTED AND TAKEN HOME WITH PT. ALL PERSCRIPTIONS WERE SENT TO MARIB[facility] DE JESUS FOR PT TO ACADEMIC MANAGER. PT DENIES ANY FURTHER QUESTIONS OR CONCERNS. PT WAS WHEELED OUT BY FAMILY TO CAR VIA WHEELCHAIR.
== END 2024-10-26 16:53 | disposition home or self-care (01) | DRG 324 ==
LOC: ER 03:16 → PCU 03:17 → ERHOLD 03:17 → PCU 06:25
PROVIDERS: Emergency Medicine; Internal Medicine; ADMIT Internal Medicine
PROC: 027237Z Dilation of Coronary Artery, Three Arteries with Four or More Drug-eluting Intraluminal Devices, Percutaneous Approach (ICD-10-PCS; principal; 2024-10-24)
PROC: 02F03ZZ Fragmentation in Coronary Artery, One Artery, Percutaneous Approach (ICD-10-PCS; 2024-10-24)
PROC: B2111ZZ Fluoroscopy of Multiple Coronary Arteries using Low Osmolar Contrast (ICD-10-PCS; 2024-10-24)
DX: I21.4 Non-ST elevation (NSTEMI) myocardial infarction (principal); I25.10 Atherosclerotic heart disease of native coronary artery without angina pectoris; I10 Essential (primary) hypertension; E78.5 Hyperlipidemia, unspecified; J45.909 Unspecified asthma, uncomplicated; G43.909 Migraine, unspecified, not intractable, without status migrainosus; F31.9 Bipolar disorder, unspecified; F41.9 Anxiety disorder, unspecified; I16.0 Hypertensive urgency; R50.9 Fever, unspecified; I95.9 Hypotension, unspecified; Z88.8 Allergy status to other drugs, medicaments and biological substances; Z88.0 Allergy status to penicillin; Z95.5 Presence of coronary angioplasty implant and graft; Z88.2 Allergy status to sulfonamides; Z88.1 Allergy status to other antibiotic agents; Z88.6 Allergy status to analgesic agent; Z79.82 Long term (current) use of aspirin; Z79.51 Long term (current) use of inhaled steroids; Z79.02 Long term (current) use of antithrombotics/antiplatelets
CPT/HCPCS: 0241U; 36415; 71045; 71046; 71275; 74174; 76937; 80053; 81001; 83690; 83880; 84145; 84484; 85025; 85347; 85379; 85520; 85610; 85730; 87086; 92972; 93005; 93010; 93306; 93454; 96374; 96375; 99152; 99153; 99285-25; A9270; C1725; C1761; C1769; C1874; C1887; C1894; C9600; G0378; J0360; J1644; J2250; J2270; J2371; J2470; J3010; J7030; J7050; Q9967

== ENCOUNTER 2024-10-26 23:44 | Observation (INO) | payer OTHER ==
[~2024-10-26] VITALS: Ht 154.9 cm; Wt 89.5 kg
[~2024-10-26 23:44] MED LIST changes: +ASPI81CH PO; +CARV25 PO; +CLOP75 PO; +DOXY100 PO; +ISOSORBIDE MONO60 MG PO; +LIPITOR80 MG PO; +LISI10 PO; +METO50ER PO; +NITR.4SL SL; +PANT40 PO
[2024-10-27] VITALS (11 sets, daily range): BP systolic 95–123; BP diastolic 63–86
[2024-10-27 00:09] LABS: BASOPHILS ABSOLUTE AUTO 0.07 K/mm3 (0.00-0.23); BASOPHILS PERCENT AUTO 1 % (0-2); EOSINOPHILS ABSOLUTE AUTO 0.39 K/mm3 (0.00-0.68); EOSINOPHILS PERCENT AUTO 3 % (0-6); Hematocrit 35.3 % (33.0-51.0); Hemoglobin 11.5 g/dL (11.5-16.0); IMMATURE GRAN ABSOLUTE AUTO 0.07 K/mm3 (0.00-0.10); IMMATURE GRAN PERCENT AUTO 1 % (0-1); LYMPHOCYTES ABSOLUTE AUTO 2.32 K/mm3 (0.84-5.20); LYMPHOCYTES PERCENT AUTO 18 % (21-46); MONOCYTES ABSOLUTE AUTO 1.09 K/mm3 (0.16-1.47); MONOCYTES PERCENT AUTO 9 % (4-13); Mean Corpuscular HGB 27.3 pg (26.0-34.0); Mean Corpuscular HGB Conc 32.6 g/dL (31.5-36.5); Mean Corpuscular Volume 84 fL (80-100); Mean Platelet Volume 11.2 fL (9.1-12.4); NEUTROPHILS ABSOLUTE AUTO 8.92 K/mm3 (1.96-9.15); NEUTROPHILS PERCENT AUTO 70 % (41-73); Platelet Count 256 K/mm3 (150-400); RDW Coefficient Variation 13.2 % (11.7-14.2); RDW Standard Deviation 39.6 fL (35.1-46.3); Red Blood Cell Count 4.22 M/mm3 (3.80-5.20); White Blood Cell Count 12.86 K/mm3 (4.00-11.30)
[2024-10-27 00:37] LABS: Albumin/Globulin Ratio 0.9 (0.8-1.8); Bilirubin, Total 0.3 mg/dL (0.1-1.0); Bun/Creatinine Ratio 16.7 (12.0-20.0); Calcium, Blood 8.5 mg/dL (8.5-10.1); Creatinine, Blood 0.66 mg/dL (0.40-1.00); Globulin, Blood 3.4 g/dL (2.2-4.0); Potassium, Blood 3.9 mmol/L (3.5-5.5); Total Protein, Blood 6.4 g/dL (6.4-8.2)
[2024-10-27] MEDS ORDERED: Ondansetron HCl 2 MG / ML 2ML Vial IV PRN (03:15)
[2024-10-27] MEDS ORDERED: Acetaminophen 325 MG TABLET PO PRN (03:45)
[2024-10-27] MEDS ORDERED: Nitroglycerin 0.4 MG SUBL SL PRN (03:50)
[2024-10-27 04:02] LABS: BASOPHILS ABSOLUTE AUTO 0.09 K/mm3 (0.00-0.23); BASOPHILS PERCENT AUTO 1 % (0-2); EOSINOPHILS ABSOLUTE AUTO 0.32 K/mm3 (0.00-0.68); EOSINOPHILS PERCENT AUTO 3 % (0-6); Hematocrit 35.2 % (33.0-51.0); Hemoglobin 11.2 g/dL (11.5-16.0); IMMATURE GRAN ABSOLUTE AUTO 0.05 K/mm3 (0.00-0.10); IMMATURE GRAN PERCENT AUTO 0 % (0-1); LYMPHOCYTES ABSOLUTE AUTO 2.28 K/mm3 (0.84-5.20); LYMPHOCYTES PERCENT AUTO 19 % (21-46); MONOCYTES ABSOLUTE AUTO 1.11 K/mm3 (0.16-1.47); MONOCYTES PERCENT AUTO 9 % (4-13); Mean Corpuscular HGB 26.9 pg (26.0-34.0); Mean Corpuscular HGB Conc 31.8 g/dL (31.5-36.5); Mean Corpuscular Volume 85 fL (80-100); Mean Platelet Volume 11.5 fL (9.1-12.4); NEUTROPHILS ABSOLUTE AUTO 8.11 K/mm3 (1.96-9.15); NEUTROPHILS PERCENT AUTO 68 % (41-73); Platelet Count 237 K/mm3 (150-400); RDW Coefficient Variation 13.1 % (11.7-14.2); RDW Standard Deviation 40.4 fL (35.1-46.3); Red Blood Cell Count 4.16 M/mm3 (3.80-5.20); White Blood Cell Count 11.96 K/mm3 (4.00-11.30)
[2024-10-27] MEDS ORDERED: Dose Adjust by Pharmacy XX STA ×2 (04:03→11:50)
[2024-10-27] MEDS ORDERED: Heparin Sodium 5000 Units/ML 1ML MDV IV ONE ×2 (04:05→11:55)
[2024-10-27] MEDS ORDERED: Heparin Sodium,Porcine/0.5 NS 500 ML IV SCH (04:05)
[2024-10-27 04:27] LABS: Anti-Xa UFH, PHA Monitoring <0.10 IU/mL; International Normalized Ratio 0.96; Prothrombin Time Results 10.3 Sec (9.7-11.5)
[2024-10-27 04:28] LABS: Albumin, Blood 2.8 g/dL (3.4-5.0); Albumin/Globulin Ratio 0.8 (0.8-1.8); Bilirubin, Total 0.3 mg/dL (0.1-1.0); Bun/Creatinine Ratio 15.1 (12.0-20.0); Calcium, Blood 8.3 mg/dL (8.5-10.1); Creatinine, Blood 0.73 mg/dL (0.40-1.00); Globulin, Blood 3.5 g/dL (2.2-4.0); Total Protein, Blood 6.3 g/dL (6.4-8.2)
--- NOTE | 2024-10-27 04:42 | NUR ---
Shift Summary: AOX4, COOPERATIVE WITH STAFF, 1 PERSON ASSIST TRANSFER D/T WEAKNESS FROM HER PAIN PT ARRIVED TO UNIT AT 0315, WENT INTO THE ER FOR CP CURRENTLY HAS ELEVATED TROPONINS, LAB VALUE HAS GONE DOWN SINCE COMING FROM THE ER SEE LAB VALUES FOR TRENDS. PT WAS RECENTLY ADMITTED TO THE HOSPITAL ON 10/24/24 FOR CP AND HAD X5 STENTS, WAS DC'D 10/26/24 CURRENTLY ON TELE, NSR HR >70S, VITALS STABLE, ROOM AIR. PATIENT COMPLAINED OF 6/10 CP MID STERNUN ON ARRIVAL TO UNIT, SPOKE WITH RESIDENT FOR PAIN CONTROL MEASURES SEE EMAR FOR FURTHER DETAILS. CARDIOLOGY CONSULT PLACED. HEPARIN RUNNING PER EMAR INSTRUCTIONS. PT IS CURRENTLY RESTING COMFORTABLY IN BED, BED AT APPROPIATE HEIGHT, CALL LIGHT WITHIN REACH, CONTINUING TO MONITOR.
--- NOTE | 2024-10-27 05:47 | NUR ---
REVIEWED MASTER BLACK BELT DOCUMENTATION AND AGREED WITH ALL ABOVE.
[2024-10-27] MEDS ORDERED: Pantoprazole Sodium 40 MG Tab PO SCH (06:00)
[2024-10-27] MEDS ORDERED: Isosorbide Mononitrate 60 MG TABCR PO SCH (09:00)
[2024-10-27] MEDS ORDERED: Clopidogrel Bisulfate 75 MG Tab PO SCH (09:00)
[2024-10-27] MEDS ORDERED: AmLODIPine Besylate 5 MG Tab PO SCH (09:00)
[2024-10-27] MEDS ORDERED: Atorvastatin 40 MG Tab PO SCH (09:00)
[2024-10-27] MEDS ORDERED: Metoprolol Succinate 50 MG TABCR PO SCH (09:00)
[2024-10-27] MEDS ORDERED: Doxycycline Hyclate 100 MG TAB PO SCH (09:00)
[2024-10-27] MEDS ORDERED: Aspirin 81 MG Chew PO SCH (09:00)
[2024-10-27] MEDS ORDERED: Lisinopril 10 MG Tab PO SCH (09:00)
[2024-10-27] MEDS ORDERED: Midazolam HCl 1MG / ML 2ML Vial ONE (13:36)
[2024-10-27] MEDS ORDERED: FentaNYL Citrate 50 MCG/ML 2 ML Injection ONE (13:36)
[2024-10-27] MEDS ORDERED: NS 1,000 ML IV ONE ×2 (13:36→13:43)
[2024-10-27] MEDS ORDERED: Heparin Sodium 1000 Units/ML 10ML MDV ONE ×3 (13:41→13:43)
[2024-10-27] MEDS ORDERED: Nitroglycerin 2 MG/20 ML BTL ONE (13:43)
[2024-10-27] MEDS ORDERED: NS 250 ML IV ONE (13:43)
[2024-10-27] MEDS ORDERED: Verapamil HCL 2.5 MG/ML 2ML Injection ONE (13:43)
--- NOTE | 2024-10-27 15:16 | NUR ---
Update note. 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 All stents open per report. Hospitalist was updated, will round this afternoon. Pt currently chest pain free.
[2024-10-27] MEDS ORDERED: ALPRAZolam 0.25 MG Tab PO PRN (16:05)
[2024-10-27] MEDS ORDERED: Colchicine 0.6 MG TAB PO SCH (18:00)
[2024-10-27] MEDS ORDERED: Acetaminophen/Aspirin/Caffeine 250/250/65 MG PO ONE (18:15)
--- NOTE | 2024-10-27 18:57 | NUR ---
End of shift note. Pt has been pleasant and cooperative with cares. Pt was OOB for a shower this morning. Some reports of anxiety this shift. Repeat angio this afternoon. Stents all looked good. 6 mL of air has been removed from TR band currently. CRP was high this evening, new meds started. Pt had significant complaints of headache and nausea this evening, was phoned for new orders. Pt is able to make needs known, call light is within reach.
[2024-10-28 04:44] LABS: Hematocrit 36.9 % (33.0-51.0); Hemoglobin 11.8 g/dL (11.5-16.0); Platelet Count 277 K/mm3 (150-400)
--- NOTE | 2024-10-28 04:50 | NUR ---
UPDATE DURING MORNING VITALS, PATIENT BECAME AGITATED AND IS REQUESTING TO LEAVE AMA. MIRYAM STATING SHE IS TIRED OF BEING WOKEN UP MULTIPLE TIMES DURING THE NIGHT. AT THIS TIME, LAB WAS IN ROOM DRAWING MORINING LABS, THIS RN INTO ROOM FOR MORINING VITALS WELL. DURING THE NIGHT PATIENT HAS APPEARED TO BE RESTING COMFORTABLY, SNORING NOTED DURING ROUNDS. RESIDENT CALLED TO BEDSIDE TO SPEAK WITH PATIENT. PATIENT REQUESTING IVs BE TAKEN OUT IMMEDIATELY. TELE NOTED TO BE ON THE FLOOR. PATIENT DRESSED IN HER OWN CLOTHES AND BAGS ARE PACKED. PATIENT CALLED TO COME PICK HER UP. THIS RN ASKING PATIENT IF THERE IS ANYTHING TO HELP TO MAKE HER MORE COMFORTABLE AND IF SHE WILL WAIT UNTIL MORNING PHYSCIAN ROUNDS. PATIENT SITTING IN RECLINER STATING "I DON'T NEED THE PAPERWORK, JUST LET ME LEAVE". IVs REMOVED PER PATIENT REQUEST.
[2024-10-28] MEDS ORDERED: HYDROcodone 5-APAP 325 TAB PO ONE (05:10)
--- NOTE | 2024-10-28 05:15 | NUR ---
UPDATE RESIDENT DR. ROCK IN ROOM TO SPEAK WITH PATIENT. PATIENT WILLING TO STAY AT THIS TIME. ORDER FOR NORCO RECEIVED, NO IV ACCESS NEEDED AND DISCONTINUE TELEMETRY. RISKS AND BENEFITS EXPLAINED TO PATIENT.
--- NOTE | 2024-10-28 05:49 | NUR ---
SHIFT SUMMARY PATIENT ALERT, ORIENTED x4. ABLE TO MAKE NEEDS KNOWN TO STAFF. SEE PREVIOUS NOTE REGARDING PATIENT CONTEMPLATING LEAVING AMA. BP STABLE. PATIENT ON RA, TELE DISCONTINUED BUT PATIENT AGREEABLE TO WEARING AGAIN. SR PRIOR TO REMOVAL. PATIENT ON RA WITH SPO2 >90%. PATIENT AMBULATED TO BATHROOM TO VOID. RIGHT GROIN SITE NONTENDER, NO HEMATOMA NOTED, OPSITE IN PLACE, DRESSING C/D/I. NO CHANGES SINCE PREVIOUS NOTES. WILL REPORT TO DAY SHIFT RN.
[2024-10-28 08:26] VITALS: BP 143/98
[2024-10-28] MEDS ORDERED: Colchicine 0.6 MG TAB PO ONE (08:35)
[2024-10-28] MEDS ORDERED: Empagliflozin 10 MG TAB PO SCH (10:00)
[2024-10-28 11:17] VITALS: BP 125/78
[2024-10-28] MEDS ORDERED: Acetaminophen325 M1 PO (11:40)
[2024-10-28] MEDS ORDERED: COLCHICINE0.6 MG PO (11:41)
[2024-10-28] MEDS ORDERED: JARDIANCE10 MG PO (11:42)
--- NOTE | 2024-10-28 12:20 | NUR ---
DISCHARGE NOTE: NO ACUTE CHANGED HAPPENED DURING SHIFT. PT DENIED ANY WORSENING IN CP OR SOB ALL MORNING AND ALSO DENIED ANY COMPLAINTS. PT WAS ABLE TO GET UP INDEPENDENTLY WITHOUT ANY COMPLAINTS. PT DISCHARGED TO HOME IN NO ACUTE STRESS AT THIS TIME. PT WAS GIVEN WRITTEN AND VERBAL DC INSTRUCTIONS AND WAS INSTRUCTED TO COME BACK TO THE ED IF SYMPTOMS WORSEN. THIS RN WENT OVER MEDS AND DC PAPERWORK WITH PT AND PT DENIES ANY FURTHER QUESTIONS OR CONCERS. PT DOES NOT HAVE AN IV TO REMOVE. PT WHEELED OUT VIA WHEELCHAIR BY HAND EDGER. PT LEFT PHONE, BLANKET AND PILLOW IN ROOM. THIS RN TRIED CONTACTING ALL PHONE NUMBERS ON PTS CHART ALL OF WHICH WERE DISCONNECTED. PTS BROTHER IN LAW CAME TO SEE PT APPROX 10 MINUTES AFTER DC. BELONGINGS WERE SENT HOME WITH FAMILY.
== END 2024-10-28 12:30 | disposition home or self-care (01) ==
LOC: ER 23:44 → PCU 23:45 → ER 23:45 → ERHOLD 23:45 → PCU 23:45 → ERHOLD 10-27 03:17 → PCU 10-27 03:17
PROVIDERS: Emergency Medicine; ADMIT Internal Medicine
PROC: B2111ZZ Fluoroscopy of Multiple Coronary Arteries using Low Osmolar Contrast (ICD-10-PCS; principal; 2024-10-27)
PROC: 4A023N7 Measurement of Cardiac Sampling and Pressure, Left Heart, Percutaneous Approach (ICD-10-PCS; 2024-10-27)
DX: I21.4 Non-ST elevation (NSTEMI) myocardial infarction (principal); I24.1 Dressler's syndrome; N39.0 Urinary tract infection, site not specified; I10 Essential (primary) hypertension; E78.5 Hyperlipidemia, unspecified; F41.9 Anxiety disorder, unspecified; J45.909 Unspecified asthma, uncomplicated; F31.9 Bipolar disorder, unspecified; E66.9 Obesity, unspecified; I25.10 Atherosclerotic heart disease of native coronary artery without angina pectoris; G43.709 Chronic migraine without aura, not intractable, without status migrainosus; K21.9 Gastro-esophageal reflux disease without esophagitis; K44.9 Diaphragmatic hernia without obstruction or gangrene; Z68.37 Body mass index [BMI] 37.0-37.9, adult; Z87.891 Personal history of nicotine dependence; Z88.2 Allergy status to sulfonamides; Z88.1 Allergy status to other antibiotic agents; Z88.8 Allergy status to other drugs, medicaments and biological substances; Z88.0 Allergy status to penicillin; Z79.899 Other long term (current) drug therapy; Z79.82 Long term (current) use of aspirin; Z79.811 Long term (current) use of aromatase inhibitors; Z87.19 Personal history of other diseases of the digestive system; Z90.49 Acquired absence of other specified parts of digestive tract; Z98.51 Tubal ligation status; Z95.5 Presence of coronary angioplasty implant and graft
CPT/HCPCS: 36415; 71046; 76937; 80053; 83880; 84484; 85014; 85018; 85025; 85049; 85520; 85610; 85730; 86141; 93005; 93010; 93308; 93321; 93454; 96365; 96366; 96376; 99152; 99153; 99285-25; A9270; C1769; C1887; C1894; G0378; J1644; J2250; J3010; J7030; J7050; Q9967

== ENCOUNTER 2024-10-30 20:15 | Emergency (ER) | payer OTHER ==
[~2024-10-30] VITALS: Ht 157.5 cm; Wt 88.9 kg
[~2024-10-30 20:15] MED LIST changes: +Acetaminophen325 M1 PO; +COLCHICINE0.6 MG PO; +JARDIANCE10 MG PO
[2024-10-30 21:08] LABS: Albumin, Blood 3.3 g/dL (3.4-5.0); Albumin/Globulin Ratio 0.8 (0.8-1.8); Bilirubin, Total 0.3 mg/dL (0.1-1.0); Bun/Creatinine Ratio 22.6 (12.0-20.0); Calcium, Blood 9.5 mg/dL (8.5-10.1); Creatinine, Blood 0.71 mg/dL (0.40-1.00); Potassium, Blood 3.8 mmol/L (3.5-5.5); Total Protein, Blood 7.3 g/dL (6.4-8.2)
[2024-10-30 21:35] LABS: BASOPHILS ABSOLUTE AUTO 0.08 K/mm3 (0.00-0.23); BASOPHILS PERCENT AUTO 1 % (0-2); EOSINOPHILS ABSOLUTE AUTO 0.47 K/mm3 (0.00-0.68); EOSINOPHILS PERCENT AUTO 4 % (0-6); Hematocrit 39.2 % (33.0-51.0); Hemoglobin 12.6 g/dL (11.5-16.0); IMMATURE GRAN ABSOLUTE AUTO 0.05 K/mm3 (0.00-0.10); IMMATURE GRAN PERCENT AUTO 0 % (0-1); LYMPHOCYTES ABSOLUTE AUTO 2.87 K/mm3 (0.84-5.20); LYMPHOCYTES PERCENT AUTO 24 % (21-46); MONOCYTES ABSOLUTE AUTO 0.92 K/mm3 (0.16-1.47); MONOCYTES PERCENT AUTO 8 % (4-13); Mean Corpuscular HGB 27.5 pg (26.0-34.0); Mean Corpuscular HGB Conc 32.1 g/dL (31.5-36.5); Mean Corpuscular Volume 85 fL (80-100); Mean Platelet Volume 12.2 fL (9.1-12.4); NEUTROPHILS ABSOLUTE AUTO 7.81 K/mm3 (1.96-9.15); NEUTROPHILS PERCENT AUTO 64 % (41-73); Platelet Count 379 K/mm3 (150-400); RDW Coefficient Variation 12.8 % (11.7-14.2); RDW Standard Deviation 39.1 fL (35.1-46.3); Red Blood Cell Count 4.59 M/mm3 (3.80-5.20)
[2024-10-30] MEDS ORDERED: OxyCODONE HCL 5 MG TAB PO ONE (23:50)
[2024-10-30] MEDS ORDERED: Acetaminophen 325 MG TABLET PO ONE (23:50)
[2024-10-31] VITALS: BP 127/87
== END 2024-10-31 00:56 | disposition home or self-care (01) ==
LOC: ER 20:15
PROVIDERS: Student in an Organized Health Care Education/Training Program
DX: R07.9 Chest pain, unspecified (principal); I10 Essential (primary) hypertension; E78.5 Hyperlipidemia, unspecified; J45.909 Unspecified asthma, uncomplicated; Z88.0 Allergy status to penicillin; Z88.2 Allergy status to sulfonamides; Z79.82 Long term (current) use of aspirin; Z88.1 Allergy status to other antibiotic agents; Z79.899 Other long term (current) drug therapy
CPT/HCPCS: 71046; 80053; 83690; 84484; 85025; 93005; 93010; 99285-25; A9270

== ENCOUNTER 2025-02-06 18:30 | Inpatient (IN) | payer OTHER ==
[~2025-02-06] VITALS: Ht 154.9 cm; Wt 84.6 kg
[2025-02-06] MEDS ORDERED: Ondansetron HCl 2 MG / ML 2ML Vial IV PRN ×2 (18:50→21:55)
[2025-02-06 19:09] LABS: BASOPHILS ABSOLUTE AUTO 0.06 K/mm3 (0.00-0.23); BASOPHILS PERCENT AUTO 1 % (0-2); EOSINOPHILS ABSOLUTE AUTO 0.23 K/mm3 (0.00-0.68); EOSINOPHILS PERCENT AUTO 2 % (0-6); Hematocrit 44.0 % (33.0-51.0); Hemoglobin 14.7 g/dL (11.5-16.0); IMMATURE GRAN ABSOLUTE AUTO 0.03 K/mm3 (0.00-0.10); IMMATURE GRAN PERCENT AUTO 0 % (0-1); LYMPHOCYTES ABSOLUTE AUTO 2.66 K/mm3 (0.84-5.20); LYMPHOCYTES PERCENT AUTO 24 % (21-46); MONOCYTES ABSOLUTE AUTO 0.71 K/mm3 (0.16-1.47); MONOCYTES PERCENT AUTO 7 % (4-13); Mean Corpuscular HGB Conc 33.4 g/dL (31.5-36.5); Mean Corpuscular Volume 82 fL (80-100); NEUTROPHILS ABSOLUTE AUTO 7.25 K/mm3 (1.96-9.15); NEUTROPHILS PERCENT AUTO 66 % (41-73); NRBC ABSOLUTE 0.00 K/mm3 (0.00-0.02); NRBC Auto 0.0 /100 WBC (0.0-0.2); Platelet Count 289 K/mm3 (150-400); RDW Coefficient Variation 14.6 % (11.7-14.2); RDW Standard Deviation 42.9 fL (35.1-46.3)
[2025-02-06 19:30] LABS: Alanine Aminotransfer (ALT/SGP 44.0 U/L (12-78); Albumin, Blood 4.1 g/dL (3.4-5.0); Albumin/Globulin Ratio 1.2 (0.8-1.8); Anion Gap 10.0 mmol/L (3-11); Aspartate Aminotrans (AST/SGOT 33.0 U/L (12-37); Bilirubin, Total 0.6 mg/dL (0.1-1.0); Blood Urea Nitrogen 16.0 mg/dL (8-24); CO2, Blood 29.0 mmol/L (21-32); Calcium, Blood 9.2 mg/dL (8.5-10.1); Chloride, Blood 105.0 mmol/L (98-108); Creatinine, Blood 1.11 mg/dL (0.40-1.00); Globulin, Blood 3.5 g/dL (2.2-4.0); Glucose, Blood 122.0 mg/dL (70-99); Potassium, Blood 3.5 mmol/L (3.5-5.5); Sodium, Blood 140.0 mmol/L (136-145); Total Protein, Blood 7.6 g/dL (6.4-8.2)
[2025-02-06] MEDS ORDERED: Morphine Sulfate 10 MG/ML 1MLSYR IV ONE (21:45)
[2025-02-06] MEDS ORDERED: Nitroglycerin Patch 0.4 MG / HR TOP ONE (21:45)
[2025-02-07] VITALS (18 sets, daily range): BP systolic 90–135; BP diastolic 76–101
--- NOTE | 2025-02-07 01:27 | NUR ---
MD NOTIFICATION FOR TROPONIN LAB CALLED WITH ELEVATED TROPONIN. MD PAGED AND UPDATED ON TROPONIN LEVEL 195.1 AND VS. PAIN 09/28. UPDATED MD PT REFUSING NITRO PASTE AND HAS ONE MORE PO NITRO AVAILABLE. MD TO ASSESS PAIN MEDICATION ALSO. 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
[2025-02-07] MEDS ORDERED: Morphine Sulfate 4 MG/1 ML Injection IV PRN (01:35)
[2025-02-07 01:59] LABS: BASOPHILS ABSOLUTE AUTO 0.04 K/mm3 (0.00-0.23); BASOPHILS PERCENT AUTO 0 % (0-2); EOSINOPHILS ABSOLUTE AUTO 0.20 K/mm3 (0.00-0.68); EOSINOPHILS PERCENT AUTO 2 % (0-6); Hematocrit 39.7 % (33.0-51.0); Hemoglobin 13.2 g/dL (11.5-16.0); IMMATURE GRAN ABSOLUTE AUTO 0.03 K/mm3 (0.00-0.10); IMMATURE GRAN PERCENT AUTO 0 % (0-1); LYMPHOCYTES ABSOLUTE AUTO 2.76 K/mm3 (0.84-5.20); LYMPHOCYTES PERCENT AUTO 27 % (21-46); MONOCYTES ABSOLUTE AUTO 0.59 K/mm3 (0.16-1.47); MONOCYTES PERCENT AUTO 6 % (4-13); Mean Corpuscular HGB Conc 33.2 g/dL (31.5-36.5); Mean Corpuscular Volume 81 fL (80-100); NEUTROPHILS ABSOLUTE AUTO 6.52 K/mm3 (1.96-9.15); NEUTROPHILS PERCENT AUTO 64 % (41-73); NRBC ABSOLUTE 0.00 K/mm3 (0.00-0.02); NRBC Auto 0.0 /100 WBC (0.0-0.2); Platelet Count 241 K/mm3 (150-400); RDW Coefficient Variation 14.6 % (11.7-14.2); RDW Standard Deviation 42.9 fL (35.1-46.3)
[2025-02-07 02:13] LABS: Anti-Xa UFH, PHA Monitoring <0.10 IU/mL; Prothrombin Time Results 10.9 Sec (9.7-11.5)
[2025-02-07 02:17] LABS: Alanine Aminotransfer (ALT/SGP 42.0 U/L (12-78); Albumin, Blood 3.7 g/dL (3.4-5.0); Albumin/Globulin Ratio 1.2 (0.8-1.8); Anion Gap 9.0 mmol/L (3-11); Aspartate Aminotrans (AST/SGOT 44.0 U/L (12-37); Bilirubin, Total 0.5 mg/dL (0.1-1.0); Blood Urea Nitrogen 17.0 mg/dL (8-24); CO2, Blood 28.0 mmol/L (21-32); Calcium, Blood 8.9 mg/dL (8.5-10.1); Chloride, Blood 105.0 mmol/L (98-108); Creatinine, Blood 0.92 mg/dL (0.40-1.00); Globulin, Blood 3.2 g/dL (2.2-4.0); Glucose, Blood 136.0 mg/dL (70-99); Magnesium, Blood 2.1 mg/dL (1.6-2.4); Potassium, Blood 3.5 mmol/L (3.5-5.5); Sodium, Blood 138.0 mmol/L (136-145); Total Protein, Blood 6.9 g/dL (6.4-8.2)
[2025-02-07] MEDS ORDERED: Heparin Sodium 5000 Units/ML 1ML MDV IV ONE (02:45)
[2025-02-07] MEDS ORDERED: Heparin Sodium,Porcine/0.5 NS 500 ML IV SCH (02:45)
--- NOTE | 2025-02-07 05:45 | NUR ---
END OF SHIFT REPORT PT ADMITTED TO UNIT FROM ER AT MIDNIGHT. PT MADE NPO FOR POSS CONCRETE FLOOR INSTALLER. RECORDS SUPERVISOR TO [facility] FOR AM CONSULT. VSS OVERNIGHT, MILD CHEST PAIN 3/10. PRN NAUSEA MEDICATION GIVEN TIMES ONE. CALLED FOR ELEVATED TROPONINS AT 0127 AND 0243. PT STARTED HEPARIN DRIP AT 15 UNITS/KG/HR AND FIRST ANTI XA LEVEL AT 0930. PT REPORTS ON MED REC THAT SHE HASNT BEEN ABLE TO FILL THE PLAVIX OR BABY ASPIRIN THIS WEEK AND HASNT TAKEN THAT MEDICATION SINCE SHE THINKS THE OR SOMETIME THIS WEEK. WILL PASS THIS ON TO DAY RN TO TELL OSTOMY RN. PT REFUSING NITRO PASTE THAT WAS ORDERED IN ER FOR REPORTED SEVERE HEADACHE. PT STILL HAS ONE NITRO ON SEP AND NOW HAS PRN MORPHINE FOR CHEST PAIN IF NEEDED.
--- NOTE | 2025-02-07 06:31 | NUR ---
ADDENDUM TO END OF SHIFT REPORT PT CALLED OUT HAVING INCREASED CHEST PAIN AT 0628. NITROGLYCERIN TAB GIVEN AFTER VS TAKEN. PAIN 5/10 AT THIS TIME. DECREASING. WILL DO AN EKG.
[2025-02-07 08:48] LABS: CHOL/HDL RATIO 2.7; Cholesterol 109 mg/dL (50-200); HDL Cholesterol 40 mg/dL (>39); LDL/HDL RATIO 1.2; Low Density Lipoprotein Chol 48 mg/dL (0-110); Triglycerides 104 mg/dL (30-160); Very Low Density Lipoprot Chol 20 mg/dL (6-32)
[2025-02-07] MEDS ORDERED: Isosorbide Mononitrate 60 MG TABCR PO SCH (09:00)
[2025-02-07] MEDS ORDERED: Enoxaparin 40 MG/0.4 ML SYR SC SCH (09:00)
--- NOTE | 2025-02-07 09:39 | NUR ---
AM NOTE: PATIENT ALERT AND ORIENTED. SOME MILD ANXIETY SURROUNDING HOSPITAL STAY AND CHEST PRESSURE. UP WITH SBA TO HELP MANAGE IV POLE AND CORDS. USING CALL LIGHT FOR NEEDS. TELE SHOWING SB/SR WITH HR 50-70'S. COMPLAINS OF 2/10 CHEST PRESSURE THAT IS LOCATED TO THE LEFT UPPER CHEST WALL. PRESSURE IS NONRADIATING. MEDICATED PRIOR TO SHIFT START WITH IMPROVEMENT IN SYMTPOMS. SEE NEW EKG IN CHART. CARDIOLOGY CONSULT THIS AM AND CONSENTED FOR ANGIOGRAM. HEPARIN GTT INFUSING PER EMAR. ON ROOM AIR SATING ABOVE 95%. DENIES SOB/COUGH. EVEN AND UNLABORED RESPIRTATIONS. LUNG SOUNDS CLEAR. BOWEL TONES PRESENT THROUGHOUT ABDOMIN. NPO AT THIS TIME. DENIES ABDOMINAL PAIN/NAUSEA. UP TO BATHROOM WITH SBA. LAST BOWEL MOVEMENT REPORTED 02/06. SKIN C/D/I. SON TO BEDSIDE THIS AM AND UPDATED ON PLAN OF CARE. SIGNIFICANT OTHER PANFILO UPDATED BY PATIENT THIS AM VIA PERSONAL CELLPHONE. CALL LIGHT IN REACH. DENIES NEEDS AT THIS TIME.
[2025-02-07] MEDS ORDERED: Dose Adjust by Pharmacy XX STA (11:15)
--- NOTE | 2025-02-07 11:28 | NUR ---
AFTERNOON VITAL SIGNS STABLE. SIG OTHER PANFILO AT BEDSIDE AND UPDATED ON PLAN OF CARE. HEPARIN GTT CONTINUES PER EMAR. REMAINS NPO, PENDING ANGIOGRAM. CALL LIGHT IN REACH. DENIES NEEDS AT THIS TIME.
--- NOTE | 2025-02-07 11:59 | NUR ---
DR. KELLER TO BEDSIDE TO DISCUSS HIGH RISK PCI WITH PATIENT. PATIENT SIG OTHER PANFILO AT BEDSIDE FOR DISCUSSION. PLAN FOR ANGIOGRAM LATER THIS AFTERNOON.
[2025-02-07] MEDS ORDERED: Verapamil HCL 2.5 MG/ML 2ML Injection ONE (13:30)
[2025-02-07] MEDS ORDERED: Midazolam HCl 1MG / ML 2ML Vial ONE ×2 (13:31→15:23)
[2025-02-07] MEDS ORDERED: FentaNYL Citrate 50 MCG/ML 2 ML Injection ONE (13:31)
[2025-02-07] MEDS ORDERED: Heparin Sodium 1000 Units/ML 10ML MDV ONE (13:31)
[2025-02-07] MEDS ORDERED: NS 2,000 ML IV ONE (13:31)
[2025-02-07] MEDS ORDERED: NS 250 ML IV ONE (13:31)
[2025-02-07] MEDS ORDERED: Nitroglycerin 2 MG/20 ML BTL ONE (13:32)
--- NOTE | 2025-02-07 14:14 | NUR ---
PATIENT TO HEART CENTER AT 1356. HEPARIN GTT STOPPED. RADIOLOGY ASSISTANT NOTIFIED OF TRANSFER AND PHARMACY UPDATED ON HEPARIN.
[2025-02-07] MEDS ORDERED: NS 1,000 ML IV SCH (16:00)
--- NOTE | 2025-02-07 16:18 | NUR ---
PATIENT BACK FROM TECHNICAL SUPPORT PROFESSIONAL AT 1548. RIGHT RADIAL SITE WITH TR BAND AND ARM BOARD IN PLACE. NO SIGNS OF BLEEDING, SOFT AND NONTENDER. POST VITAL SIGNS IN PROGRESS. RATES CHEST PAIN/ARM PAIN 10/10. MEDICATED PER EMAR WITH GOOD RELIEF. COUSIN AT BEDSIDE. NORMAL SALINE INFUSING PER EMAR. PATIENT EATING SNACK AT THIS TIME.
--- NOTE | 2025-02-07 19:03 | NUR ---
SHIFT SUMMARY: NO ACUTE CHANGES. PATIENT TR BAND REMOVAL IN PROGRESS. POST VITAL SIGNS STABLE. IV FLUIDS INFUSING PER EMAR. REMAINS SR ON TELE. ROOM AIR. RESOLVED CHEST PAIN. FAMILY AT BEDSIDE THIS EVENING. TOLERATING PO DIET. UP WITH SBA TO BATHROOM. ARM BOARD REMAINS IN PLACE. DENIES NEEDS AT THIS TIME. CALL LIGHT IN REACH.
[2025-02-07] MEDS ORDERED: FentaNYL Citrate 50 MCG/ML 2 ML Injection IV PRN (19:30)
--- NOTE | 2025-02-07 19:43 | NUR ---
THIS RN AND BRITTNEE REYES AT BEDSIDE FOR SHIFT REPORT. SIGNIFICANT OTHER PANFILO AT BEDSIDE AND WAKES PATIENT FROM NAP. PATIENT WAKES WITH 11/10 LEFT SIDE CHEST PAIN WITH MINIMAL RADIATION WITHIN CHEST. HR 60'S. BLOOD PRESSURE 135/101(113). THIS RN PLACED CALL TO DR. KELLER. ORDERS FOR NEW EKG, DISCONTINUE IV MORPHINE AND NEW ORDER FOR FENTANYL IV 50MCG Q2 PRN FOR PAIN. ORDERS IN PLACE.
[2025-02-08 02:16] VITALS: BP 126/89
--- NOTE | 2025-02-08 02:42 | NUR ---
MD NOTIFICATION DR HOLMAN CALLED FOR PT 5 BEAT RUN VTACH WHILE SLEEPING RETURNING TO BASELINE SINUS WINNIE,SINUS RHYTHM. VS TAKEN. PT C/O CHEST PAIN 6/10 PAIN AND PRN 50 MCG FENTANYL GIVEN. MD ORDERING MAG AND PHOS ADDED TO AM LABS, CALL W AM EKG FINDING.
[2025-02-08 03:56] LABS: Hematocrit 39.4 % (33.0-51.0); Hemoglobin 13.1 g/dL (11.5-16.0); Mean Corpuscular HGB Conc 33.2 g/dL (31.5-36.5); Mean Corpuscular Volume 83 fL (80-100); NRBC ABSOLUTE 0.00 K/mm3 (0.00-0.02); NRBC Auto 0.0 /100 WBC (0.0-0.2); Platelet Count 218 K/mm3 (150-400); RDW Coefficient Variation 14.6 % (11.7-14.2); RDW Standard Deviation 43.8 fL (35.1-46.3)
[2025-02-08 04:00] VITALS: BP 123/87
[2025-02-08 04:28] LABS: Anion Gap 8.0 mmol/L (3-11); Blood Urea Nitrogen 12.0 mg/dL (8-24); CO2, Blood 25.0 mmol/L (21-32); Calcium, Blood 8.1 mg/dL (8.5-10.1); Chloride, Blood 107.0 mmol/L (98-108); Creatinine, Blood 0.76 mg/dL (0.40-1.00); Glucose, Blood 115.0 mg/dL (70-99); Magnesium, Blood 2.0 mg/dL (1.6-2.4); Phosphorus, Blood 4.6 mg/dL (2.5-4.9); Potassium, Blood 3.8 mmol/L (3.5-5.5); Sodium, Blood 136.0 mmol/L (136-145)
--- NOTE | 2025-02-08 04:59 | NUR ---
MD NOTIFICATION FOLLOW UP DR HOLMAN CALLED FOR AM EKG- SINUS WINNIE. AM ELECTROLYTES READ. VSS, PT CHEST PAIN CONTROLLED AT THIS TIME
--- NOTE | 2025-02-08 05:56 | NUR ---
END OF SHIFT REPORT PAIN CONTROLLED WITH PRN FENTANYL OVERNIGHT. PT HAD COMPLAINTS OF CHEST PAIN AT START OF THE SHIFT WHERE DAY RN OBTAINED NEW ORDERS. FENTAYL GIVEN AT 1950 AND PAIN RELIEVED TO A 2 TILL 219 WHEN PT C/O 6/10 CHEST PAIN AFTER ASSESSING PT VS AFTER 5 BEAT VTACH RUN WHILE SLEEPING. NOTIFIED AND WANTED NOTIFICATION OF AM EKG. MAG AND PHOS ADDED TO AM LABS. ANOTHER PRN FENTANYL DOSE GIVEN AND PAINRELIEVED. AFTER AM LABS RESULTED, PAGED THIS MORNING W UPDATEDS. T BAND SIGHT TO R RADIAL ASSESSED OVERNIGHT W SLOW REMOVAL OF AIR. SMALL BRUISING NOTED AT SITE AND OOZING STOPPED. WRIST STILL IN BOARD AND EDUCATION CONTINUES ON ARM RESTRICTION AND CARE. PT SINUS WINNIE TO SINUS RHTHYM OVERNGHT, VOIDING CLEAR YELLOW URINE. POSS DC TODAY.
[2025-02-08 07:58] VITALS: BP 129/87
[2025-02-08] MEDS ORDERED: Isosorbide Mononitrate 60 MG TABCR PO SCH (09:00)
[2025-02-08 11:47] VITALS: BP 111/73
--- NOTE | 2025-02-08 12:54 | NUR ---
DISCHARGE: PATIENT ALERT AND ORIENTED X4. SOME ANXIETY WITH HOSPITAL STAY. DENIES PAINS THIS AM. TELE SHOWING SR WITH HR 60-70'S. VITAL SIGNS STABLE. RIGHT RADIAL SITE WNL. C/D/I WITH ARM BOARD IN PLACE. MINIMAL BRUISING PROXIMAL TO SITE. ON ROOM AIR, DENIES SOB/COUGH. TOLERATING PO DIET. DENIES ABDOMINAL PAIN/NAUSEA. UP TO BATHROOM WITH SBA. DR. GONZALEZ TO BEDSIDE PRIOR TO THIS RN SHIFT. DR. BAER TO BEDSIDE AND THIS RN PRESENT. DISCHARGE THIS AFTERNOON. THIS RN REVIEWED ALL DISCHARGE INSTRUCTIONS WITH PATIENT, PATIENT SON PRESENT. PATIENT ABLE TO VERBALIZE INSTRUCTIONS BACK TO THIS RN. THIS RN REVIEWED RADIAL PRECAUTIONS, STENT CARD INFORMATION, NEW MEDICATION CHANGES, FOLLOW UP APPOINTMENTS AND SIGNS AND SYMPTOMS OF WHEN TO RETURN. PATIENT LEFT UNIT WITH ALL PERSONAL BELONGINGS VIA WHEELCHAIR.
== END 2025-02-08 12:59 | disposition home or self-care (01) | DRG 322 ==
LOC: ER 18:30 → PCU 18:31
PROVIDERS: Emergency Medicine; Internal Medicine; ADMIT Student in an Organized Health Care Education/Training Program
PROC: 027034Z Dilation of Coronary Artery, One Artery with Drug-eluting Intraluminal Device, Percutaneous Approach (ICD-10-PCS; principal; 2025-02-07)
PROC: B2111ZZ Fluoroscopy of Multiple Coronary Arteries using Low Osmolar Contrast (ICD-10-PCS; 2025-02-07)
DX: I21.4 Non-ST elevation (NSTEMI) myocardial infarction (principal); I25.10 Atherosclerotic heart disease of native coronary artery without angina pectoris; E78.5 Hyperlipidemia, unspecified; I10 Essential (primary) hypertension; J45.909 Unspecified asthma, uncomplicated; E66.9 Obesity, unspecified; F41.9 Anxiety disorder, unspecified; R00.1 Bradycardia, unspecified; F31.9 Bipolar disorder, unspecified; I25.2 Old myocardial infarction; Z88.8 Allergy status to other drugs, medicaments and biological substances; Z88.0 Allergy status to penicillin; Z95.5 Presence of coronary angioplasty implant and graft; Z88.2 Allergy status to sulfonamides; Z88.1 Allergy status to other antibiotic agents; Z88.6 Allergy status to analgesic agent; Z79.02 Long term (current) use of antithrombotics/antiplatelets; Z79.51 Long term (current) use of inhaled steroids; Z79.82 Long term (current) use of aspirin; Z79.84 Long term (current) use of oral hypoglycemic drugs; Z68.34 Body mass index [BMI] 34.0-34.9, adult
CPT/HCPCS: 36415; 71046; 76937; 80048; 80053; 80061; 82947; 83690; 83735; 84100; 84484; 85025; 85027; 85347; 85520; 85610; 93005; 93010; 93454; 96374; 96375; 99152; 99153; 99285-25; A9270; C1725; C1769; C1874; C1887; C1894; C9600; G0378; J1644; J2250; J2270; J2405; J3010; J3246; J7030; J7050; Q9967

== ENCOUNTER 2025-02-16 16:30 | Emergency (ER) | payer OTHER ==
[~2025-02-16] VITALS: Ht 154.9 cm; Wt 85.3 kg
[2025-02-16 16:35] VITALS: BP 146/98
== END 2025-02-16 18:08 | disposition home or self-care (01) ==
LOC: ER 16:30
DX: G44.309 Post-traumatic headache, unspecified, not intractable (principal); M25.562 Pain in left knee; E78.5 Hyperlipidemia, unspecified; I10 Essential (primary) hypertension; J45.909 Unspecified asthma, uncomplicated; I25.10 Atherosclerotic heart disease of native coronary artery without angina pectoris; I25.2 Old myocardial infarction; Z95.5 Presence of coronary angioplasty implant and graft; Z88.0 Allergy status to penicillin; Z88.8 Allergy status to other drugs, medicaments and biological substances; Z88.2 Allergy status to sulfonamides; Z88.1 Allergy status to other antibiotic agents; Z88.6 Allergy status to analgesic agent; Z79.51 Long term (current) use of inhaled steroids; Z79.82 Long term (current) use of aspirin; Z79.84 Long term (current) use of oral hypoglycemic drugs; Z79.02 Long term (current) use of antithrombotics/antiplatelets; Z79.899 Other long term (current) drug therapy
CPT/HCPCS: 73562-LT; 99284-25; A9270

== ENCOUNTER 2025-03-14 23:57 | Emergency (ER) | payer OTHER ==
[~2025-03-14] VITALS: Ht 154.9 cm; Wt 79.8 kg
[2025-03-15] MEDS ORDERED: Ondansetron HCl 2 MG / ML 2ML Vial IV PRN (00:40)
[2025-03-15 00:52] LABS: BASOPHILS ABSOLUTE AUTO 0.06 K/mm3 (0.00-0.23); BASOPHILS PERCENT AUTO 1 % (0-2); EOSINOPHILS ABSOLUTE AUTO 0.29 K/mm3 (0.00-0.68); EOSINOPHILS PERCENT AUTO 3 % (0-6); Hematocrit 39.8 % (33.0-51.0); Hemoglobin 12.9 g/dL (11.5-16.0); IMMATURE GRAN ABSOLUTE AUTO 0.02 K/mm3 (0.00-0.10); IMMATURE GRAN PERCENT AUTO 0 % (0-1); LYMPHOCYTES ABSOLUTE AUTO 2.63 K/mm3 (0.84-5.20); LYMPHOCYTES PERCENT AUTO 26 % (21-46); MONOCYTES ABSOLUTE AUTO 0.56 K/mm3 (0.16-1.47); MONOCYTES PERCENT AUTO 5 % (4-13); Mean Corpuscular HGB Conc 32.4 g/dL (31.5-36.5); Mean Corpuscular Volume 84 fL (80-100); NEUTROPHILS ABSOLUTE AUTO 6.76 K/mm3 (1.96-9.15); NEUTROPHILS PERCENT AUTO 66 % (41-73); NRBC ABSOLUTE 0.00 K/mm3 (0.00-0.02); NRBC Auto 0.0 /100 WBC (0.0-0.2); Platelet Count 236 K/mm3 (150-400); RDW Coefficient Variation 14.8 % (11.7-14.2); RDW Standard Deviation 45.2 fL (35.1-46.3)
[2025-03-15] MEDS ORDERED: Morphine Sulfate 4 MG/1 ML Injection IV ONE (01:00)
[2025-03-15 01:12] LABS: Alanine Aminotransfer (ALT/SGP 24.0 U/L (12-78); Albumin, Blood 3.6 g/dL (3.4-5.0); Albumin/Globulin Ratio 1.2 (0.8-1.8); Anion Gap 9.0 mmol/L (3-11); Aspartate Aminotrans (AST/SGOT 19.0 U/L (12-37); Bilirubin, Total 0.3 mg/dL (0.1-1.0); Blood Urea Nitrogen 18.0 mg/dL (8-24); CO2, Blood 24.0 mmol/L (21-32); Calcium, Blood 8.8 mg/dL (8.5-10.1); Chloride, Blood 107.0 mmol/L (98-108); Creatinine, Blood 0.85 mg/dL (0.40-1.00); Globulin, Blood 3.1 g/dL (2.2-4.0); Glucose, Blood 111.0 mg/dL (70-99); Potassium, Blood 3.8 mmol/L (3.5-5.5); Sodium, Blood 136.0 mmol/L (136-145); Total Protein, Blood 6.7 g/dL (6.4-8.2)
[2025-03-15 04:15] VITALS: BP 112/78
[2025-03-15] MEDS ORDERED: FAMO20 PO (04:54)
== END 2025-03-15 06:25 | disposition home or self-care (01) ==
LOC: ER 23:57
PROVIDERS: Emergency Medicine
DX: R07.9 Chest pain, unspecified (principal); I25.10 Atherosclerotic heart disease of native coronary artery without angina pectoris; I25.2 Old myocardial infarction; I10 Essential (primary) hypertension; J45.909 Unspecified asthma, uncomplicated; E78.5 Hyperlipidemia, unspecified; Z95.5 Presence of coronary angioplasty implant and graft; Z88.0 Allergy status to penicillin; Z88.2 Allergy status to sulfonamides; Z88.1 Allergy status to other antibiotic agents; Z88.6 Allergy status to analgesic agent; Z88.8 Allergy status to other drugs, medicaments and biological substances; Z79.82 Long term (current) use of aspirin; Z79.899 Other long term (current) drug therapy
CPT/HCPCS: 71046; 80053; 83690; 83880; 84484; 85025; 93005; 93010; 96374; 96375; 99285-25; J2270; J2405